=== PATIENT | female | born 2000 | race Hispanic/Latino ===

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

== ENCOUNTER 2021-08-13 19:11 | Emergency (ER) | payer BC, OTHER ==
--- OUTSIDE RECORDS SUMMARY | 2021-08-13 19:20 | XMS REPORT | Continuity of Care Document ---
:2000 Author Organization [facility] t Address [address] [place] [address] Dr. Gonzalez. [address] [place] [address] Care Team Providers Name Role Phone PCP, DOES NOT HAVE A Primary Care Physician Unavailable Adrienne LEIVA Attending Clinician Unavailable Adrienne Wu Attending Clinician Silvano Tim DO Attending Clinician Nurse, Women's Health Attending Clinician Unavailable Lisseth FREEMAN L Attending Clinician Brii MONTANEZ Attending Clinician Unavailable 2, Lab Attending Clinician Unavailable Doctor Unassigned, Name Attending Clinician Unavailable Jet HOLDEN Attending Clinician Provider, Urgent Care Attending Clinician Unavailable Dewayne Wright PA-C Attending Clinician DEWAYNE WRIGHT Attending Clinician Unavailable Ming Agarwal Attending Clinician Care, 23 - Adult & Pedi Urgent Attending Clinician UnavailMing Pedersen Attending Clinician Unavailable Louis FREEMAN, Silas Attending Clinician Ousmane PRETTY Attending Clinician Payers Payer Name Policy Type Policy Number Effective Date Expiration Date [facility] [id number] 2020 00:00:00 Problems Condition Condition Condition Status Onset Resolution Last Treating Co mments Source Name Details Category Date Date Treatment Clinician Date Depression Depression Disease Active N PI:183 with with 12-26 [id number] anxiety anxiety 00:00: 00 GERD GERD Disease Active NPI:183 (gastroeso (gastroeso 4-14 13 96475 phageal phageal 00:00: reflux reflux 00 disease) disease) S/P S/P Disease Active NPI:183 cholecyste cholecyste 14 13 17823 ctomy ctomy 00:00: 00 Obesity Obesity Disease Active 2018-04 NPI:183 (BMI (BMI 2-17 [id number] 30-39.9) 30-39.9) 00:00: 00 Drug use Drug use Disease Active NPI:1 83 3- [id number] 00:00: 00 Risky Risky Disease Active NPI:183 sexual sexual 2-28 1270862 behavior behavior 00:00: 00 Autism Autism Disease Active NPI:183 spectrum spectrum 7-21 467203 1 00:00: 00 Attention Attention Disease Active NPI :183 deficit deficit 7- 1208193 hyperactiv hyperactiv 00:00: ity ity 00 disorder disorder (ADHD), (ADHD), 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 IBS IBS Disease Active NPI:183 (irritable (irritable 10-27 13 00057 bowel bowel 00:00: syndrome) syndrome) 00 Allergies, Adverse Reactions, Alerts Allergy Allergy Status Severity Reaction(s) Onset Inactive Treating Comm ents Source Name Type Date Date Clinician HYDROCOD DRUG Active Rash NPI:183 ONE INGREDI 16 [id number] 00:00: 00 Hydrocod Propensi Active Rash NPI:18 3 one ty to 12-23 9883205 adverse 00:00: reaction 00 s NO KNOWN Drug Active NPI:183 ALLERGIE Class [id number] S Social History Social Habit Start Date Stop Date Quantity Comments Source Exposure to Not sure NPI:[id number] 1 SARS-CoV-2 (event) History of Cigarette Smoker NPI:1831 [id number] tobacco use Alcohol intake 2021-06-07 2021-06-07 0 /d NPI:[id number] 00:00:00 00:00:00 Tobacco use and 2019-12-24 2019-12-24 Never used NPI:10134 01937 exposure 00:00:00 00:00:00 Sex Assigned At 2000 2000 NPI:09846 53628 00:00:00 00:00:00 Smoking Status Start Date Stop Date Source Former smoker 2019-12-24 00:00:00 2019-12-24 00:00:00 NPI:1831 [id number] Never smoker Medications Ordered Filled Start Stop Current Ordering Indication Dosage Frequency Signature Comments Components Source Medication Medication Date Date Medication? Clinician (SIG) Name Name azithromyci 2021- No 1000mg 1,000 mg, NPI:183 n 06-07 Oral, [id number] (ZITHROMAX) 18:30: 17:34 ONCE, 1 tablet 00 :00 dose, On 1,000 mg Sun06/07/21 at 1230, TORSTEN
Re ason for Anti-Infec tive: Empiric Therapy for Suspected Infection< br>Empiric Therapy Site: Pelvic
Duration of therapy: 72 hours cefTRIAXone 2021- No 500mg 500 mg, N PI:183 (ROCEPHIN) 06-07 Intramuscu 13 41673 injection 18:30: 17:35 lar, ONCE, 500 mg 00 :00 1 dose, On Sun06/07/21 at 1230, TORSTEN
Re ason for Anti-Infec tive: Empiric Therapy for Suspected Infection< br>Empiric Therapy Site: Pelvic
Duration of therapy: 72 hours doxycycline 2021-2021- Yes [id number] 100mg Take 1 NPI:183 hyclate 100 06-07 capsule by 1 [id number] mg capsule 00:00: 05:59 mouth 2 00 :00 (two) times daily for 7 days. azithromyci Yes [id number] 1000mg Take 2 NPI:183 n 500 mg 9-17 [place] [id number] 81 tablet 00:00: mouth 00 daily. azithromyci Yes [id number] 1000mg Take 2 NPI:183 n 500 mg 9-17 [place] 28093 81 tablet 00:00: mouth 00 daily. azithromyci 2020-0 Yes [id number] 1000mg Take 2 NPI:183 n 500 mg 9-17 [place] 67026 81 tablet 00:00: mouth 00 daily. azithromyci 2020-0 Yes [id number] 1000mg Take 2 NPI:183 n 500 mg 9-17 [place] 98060 81 tablet 00:00: mouth 00 daily. azithromyci 2020-0 Yes [id number] 1000mg Take 2 NPI:183 n 500 mg 9-17 tablets [place] [id number] 81 tablet 00:00: mouth 00 daily. azithromyci 2020-0 Yes [id number] 1000mg Take 2 NPI:183 n 500 mg 9-17 [place] [id number] 81 tablet 00:00: mouth 00 daily. azithromyci 2020-0 Yes [id number] 1000mg Take 2 NPI:183 n 500 mg 9-17 [place] [id number] 81 tablet 00:00: mouth 00 daily. azithromyci 2020-0 Yes [id number] 1000mg Take 2 NPI:183 n 500 mg 9-17 [place] 72572 81 tablet 00:00: mouth 00 daily. mirtazapine 2020-0 Yes 30mg Take 30 mg NPI:183 30 mg 9-16 by mouth [id number] tablet 18:39: at 18 bedtime. propranoloL 2020-0 Yes 20mg Take 20 mg NPI:183 20 mg 9-16 by mouth 2 [id number] tablet 18:39: (two) 18 times daily. FLUoxetine 2020-0 Yes 20mg Take 20 mg N PI:183 (PROZAC) 20 9-16 by mouth 1318 781 mg capsule 18:39: daily. 18 mirtazapine 2020-0 Yes 30mg Take 30 mg NPI:183 30 mg 9-16 by mouth [id number] tablet 18:39: at 18 bedtime. propranoloL 2020-0 Yes 20mg Take 20 mg NPI:183 20 mg 9-16 by mouth 2 [id number] tablet 18:39: (two) 18 times daily. FLUoxetine 2020-0 Yes 20mg Take 20 mg N PI:183 (PROZAC) 20 9-16 by mouth 1318 781 mg capsule 18:39: daily. 18 mirtazapine 2020-0 Yes 30mg Take 30 mg NPI:183 30 mg 9-16 by mouth [id number] tablet 18:39: at 18 bedtime. propranoloL 2020-0 Yes 20mg Take 20 mg NPI:183 20 mg 9-16 by mouth 2 [id number] tablet 18:39: (two) 18 times daily. FLUoxetine 2020-0 Yes 20mg Take 20 mg N PI:183 (PROZAC) 20 9-16 by mouth 1318 781 mg capsule 18:39: daily. 18 mirtazapine 2020-0 Yes 30mg Take 30 mg NPI:183 30 mg 9-16 by mouth [id number] tablet 18:39: at 18 bedtime. propranoloL 2020-0 Yes 20mg Take 20 mg NPI:183 20 mg 9-16 by mouth 2 [id number] tablet 18:39: (two) 18 times daily. FLUoxetine 2020-0 Yes 20mg Take 20 mg N PI:183 (PROZAC) 20 9-16 by mouth 1318 781 mg capsule 18:39: daily. 18 mirtazapine 2020-0 Yes 30mg Take 30 mg NPI:183 30 mg 9-16 by mouth [id number] tablet 18:39: at 18 bedtime. propranoloL 2020-0 Yes 20mg Take 20 mg NPI:183 20 mg 9-16 by mouth 2 [id number] tablet 18:39: (two) 18 times daily. FLUoxetine 2020-0 Yes 20mg Take 20 mg N PI:183 (PROZAC) 20 9-16 by mouth 1318 781 mg capsule 18:39: daily. 18 mirtazapine 2020-0 Yes 30mg Take 30 mg NPI:183 30 mg 9-16 by mouth [id number] tablet 18:39: at 18 bedtime. propranoloL 2020-0 Yes 20mg Take 20 mg NPI:183 20 mg 9-16 by mouth 2 [id number] tablet 18:39: (two) 18 times daily. FLUoxetine 2020-0 Yes 20mg Take 20 mg N PI:183 (PROZAC) 20 9-16 by mouth 1318 781 mg capsule 18:39: daily. 18 mirtazapine 2020-0 Yes 30mg Take 30 mg NPI:183 30 mg 9-16 by mouth [id number] tablet 18:39: at 18 bedtime. propranoloL 2020-0 Yes 20mg Take 20 mg NPI:183 20 mg 9-16 by mouth 2 [id number] tablet 18:39: (two) 18 times daily. FLUoxetine 2020-0 Yes 20mg Take 20 mg N PI:183 (PROZAC) 20 9-16 by mouth 1318 781 mg capsule 18:39: daily. 18 mirtazapine 2020-0 Yes 30mg Take 30 mg NPI:183 30 mg 9-16 by mouth [id number] tablet 18:39: at 18 bedtime. propranoloL 2020-0 Yes 20mg Take 20 mg NPI:183 20 mg 9-16 by mouth 2 [id number] tablet 18:39: (two) 18 times daily. FLUoxetine 2020-0 Yes 20mg Take 20 mg N PI:183 (PROZAC) 20 9-16 by mouth 1318 781 mg capsule 18:39: daily. 18 mirtazapine 2020-0 Yes 30mg Take 30 mg NPI:183 30 mg 9-16 by mouth [id number] tablet 18:39: at 18 bedtime. propranoloL 2020-0 Yes 20mg Take 20 mg NPI:183 20 mg 9-16 by mouth 2 [id number] tablet 18:39: (two) 18 times daily. FLUoxetine 2020-0 Yes 20mg Take 20 mg N PI:183 (PROZAC) 20 9-16 by mouth 1318 781 mg capsule 18:39: daily. 18 mirtazapine 2020-0 Yes 30mg Take 30 mg NPI:183 30 mg 9-16 by mouth [id number] tablet 18:39: at 18 bedtime. propranoloL 2020-0 Yes 20mg Take 20 mg NPI:183 20 mg 9-16 by mouth 2 [id number] tablet 18:39: (two) 18 times daily. FLUoxetine 2020-0 Yes 20mg Take 20 mg N PI:183 (PROZAC) 20 9-16 by mouth 1318 781 mg capsule 18:39: daily. 18 mirtazapine 2020-0 Yes 30mg Take 30 mg NPI:183 30 mg 9-16 by mouth [id number] tablet 18:39: at 18 bedtime. propranoloL 2020-0 Yes 20mg Take 20 mg NPI:183 20 mg 9-16 by mouth 2 [id number] tablet 18:39: (two) 18 times daily. FLUoxetine 2020-0 Yes 20mg Take 20 mg N PI:183 (PROZAC) 20 9-16 by mouth 1318 781 mg capsule 18:39: daily. 18 busPIRone 2020-0 Yes 30mg Take 30 mg AP PROCESSOR I:183 30 mg 9-16 by mouth 2 [id number] tablet 18:39: (two) 17 times daily. busPIRone 2020-0 Yes 30mg Take 30 mg AP PROCESSOR I:183 30 mg 9-16 by mouth 2 [id number] tablet 18:39: (two) 17 times daily. busPIRone 2020-0 Yes 30mg Take 30 mg AP PROCESSOR I:183 30 mg 9-16 by mouth 2 [id number] tablet 18:39: (two) 17 times daily. busPIRone 2020-0 Yes 30mg Take 30 mg AP PROCESSOR I:183 30 mg 9-16 by mouth 2 [id number] tablet 18:39: (two) 17 times daily. busPIRone 2020-0 Yes 30mg Take 30 mg AP PROCESSOR I:183 30 mg 9-16 by mouth 2 [id number] tablet 18:39: (two) 17 times daily. busPIRone 2020-0 Yes 30mg Take 30 mg AP PROCESSOR I:183 30 mg 9-16 by mouth 2 [id number] tablet 18:39: (two) 17 times daily. busPIRone 2020-0 Yes 30mg Take 30 mg AP PROCESSOR I:183 30 mg 9-16 by mouth 2 [id number] tablet 18:39: (two) 17 times daily. busPIRone 2020-0 Yes 30mg Take 30 mg AP PROCESSOR I:183 30 mg 9-16 by mouth 2 [id number] tablet 18:39: (two) 17 times daily. busPIRone 2020-0 Yes 30mg Take 30 mg AP PROCESSOR I:183 30 mg 9-16 by mouth 2 [id number] tablet 18:39: (two) 17 times daily. busPIRone 2020-0 Yes 30mg Take 30 mg AP PROCESSOR I:183 30 mg 9-16 by mouth 2 [id number] tablet 18:39: (two) 17 times daily. busPIRone 2020-0 Yes 30mg Take 30 mg AP PROCESSOR I:183 30 mg 9-16 by mouth 2 [id number] tablet 18:39: (two) 17 times daily. mirtazapine 2020-0 Yes 30mg Take 30 mg NPI:183 30 mg 9-16 by mouth [id number] tablet 13:39: at 18 bedtime. propranoloL 2020-0 Yes 20mg Take 20 mg NPI:183 20 mg 9-16 by mouth 2 [id number] tablet 13:39: (two) 18 times daily. FLUoxetine 2020-0 Yes 20mg Take 20 mg N PI:183 (PROZAC) 20 9-16 by mouth 1318 781 mg capsule 13:39: daily. 18 busPIRone 2020-0 Yes 30mg Take 30 mg AP PROCESSOR I:183 30 mg 9-16 by mouth 2 [id number] tablet 13:39: (two) 17 times daily. metroNIDAZO 2020-0 2020- No [id number] 500mg Take 1 NPI:183 LE 500 mg 08-04 05-06 tablet by 1318 781 tablet 00:00: 04:59 mouth 2 00 :00 (two) times daily for 7 days. cefTRIAXone 2020-0 2020- No [id number] 1000mg NPI:183 (ROCEPHIN) 07-21 [id number] injection 19:45: 18:54 1,000 mg 00 :00 lidocaine 2019-0 2020- No [id number] 2.1mL AP PROCESSOR I:183 1% (PF) 07-21 [id number] (XYLOCAINE) 19:45: 18:54 injection 00 :00 2.1 mL lidocaine 2019-2019- No [id number] 2.1mL 2.1 mL, NPI:183 1% (PF) 07-21 Intramuscu [id number] 81 (XYLOCAINE) 19:45: 18:54 lar, ONCE, injection 00 :00 1 dose, 2.1 mL 07/22/19 at 1445, Routine cefTRIAXone 2019-2019- No [id number] 1000mg 1,000 mg, NPI:183 (ROCEPHIN) 07-21 Intramuscu 13 [id number] injection 19:45: 18:54 lar, ONCE, 1,000 mg 00 :00 1 dose, 07/22/19 at 1445, TORSTEN
Re ason for Anti-Infec tive: Empiric Therapy for Suspected Infection< br>Empiric Therapy Site: Urine
D uration of therapy: 72 hours dextroamphe 2019-0 2020- No Take by N PI:183 tamine/amph 07-21 mouth. [id number] 81 etamine 18:00: 00:00 (ADDERALL 30 :00 ORAL) dextroamphe 2019-0 2020- No Take by N PI:183 tamine/amph 07-21 mouth. [id number] 81 etamine 13:00: 00:00 (ADDERALL 30 :00 ORAL) ciprofloxac 2020-0 2020- No [id number] 500mg Take 1 NPI:183 in HCl -07-29 tablet by [id number] (CIPRO) 500 00:00: 04:59 mouth mg tablet 00 :00 every 12 (twelve) hours for 7 days. dextroamphe 2020-0 Yes TAKE 1 NPI: 183 tamine-amph 2-26 TABLET BY 131 [id number] etamine 10 00:00: ORAL ROUTE mg tablet 00 2 TIMES EVERY DAY BEFORE BREAKFAST NEEDED FOR ADHD dextroamphe 2020-0 Yes TAKE 1 NPI: 183 tamine-amph 2-26 TABLET BY 131 8781 etamine 10 00:00: ORAL ROUTE mg tablet 00 2 TIMES EVERY DAY BEFORE BREAKFAST NEEDED FOR ADHD dextroamphe 2020-0 Yes TAKE 1 NPI: 183 tamine-amph 2-26 TABLET BY 131 8781 etamine 10 00:00: ORAL ROUTE mg tablet 00 2 TIMES EVERY DAY BEFORE BREAKFAST NEEDED FOR ADHD dextroamphe 2020-0 Yes TAKE 1 NPI: 183 tamine-amph 2-26 TABLET BY 131 8781 etamine 10 00:00: ORAL ROUTE mg tablet 00 2 TIMES EVERY DAY BEFORE BREAKFAST NEEDED FOR ADHD dextroamphe 2020-0 Yes TAKE 1 NPI: 183 tamine-amph 2-26 TABLET BY 131 8781 etamine 10 00:00: ORAL ROUTE mg tablet 00 2 TIMES EVERY DAY BEFORE BREAKFAST NEEDED FOR ADHD dextroamphe 2020-0 Yes TAKE 1 NPI: 183 tamine-amph 2-26 TABLET BY 131 8781 etamine 10 00:00: ORAL ROUTE mg tablet 00 2 TIMES EVERY DAY BEFORE BREAKFAST NEEDED FOR ADHD dextroamphe 2020-0 Yes TAKE 1 NPI: 183 tamine-amph 2-26 TABLET BY 131 8781 etamine 10 00:00: ORAL ROUTE mg tablet 00 2 TIMES EVERY DAY BEFORE BREAKFAST NEEDED FOR ADHD dextroamphe 2020-0 Yes TAKE 1 NPI: 183 tamine-amph 2-26 TABLET BY 131 8781 etamine 10 00:00: ORAL ROUTE mg tablet 00 2 TIMES EVERY DAY BEFORE BREAKFAST NEEDED FOR ADHD dextroamphe 2020-0 Yes TAKE 1 NPI: 183 tamine-amph 2-26 TABLET BY 131 8781 etamine 10 00:00: ORAL ROUTE mg tablet 00 2 TIMES EVERY DAY BEFORE BREAKFAST NEEDED FOR ADHD dextroamphe 2020-0 Yes TAKE 1 NPI: 183 tamine-amph 2-26 TABLET BY 131 8781 etamine 10 00:00: ORAL ROUTE mg tablet 00 2 TIMES EVERY DAY BEFORE BREAKFAST NEEDED FOR ADHD dextroamphe 2020-0 Yes TAKE 1 NPI: 183 tamine-amph 2-26 TABLET BY 131 8781 etamine 10 00:00: ORAL ROUTE mg tablet 00 2 TIMES EVERY DAY BEFORE BREAKFAST NEEDED FOR ADHD dextroamphe 2020-0 Yes TAKE 1 NPI: 183 tamine-amph 2-26 TABLET BY 131 8781 etamine 10 00:00: ORAL ROUTE mg tablet 00 2 TIMES EVERY DAY BEFORE BREAKFAST NEEDED FOR ADHD dextroamphe 2020-0 Yes TAKE 1 NPI: 183 tamine-amph 2-26 TABLET BY 131 8781 etamine 10 00:00: ORAL ROUTE mg tablet 00 2 TIMES EVERY DAY BEFORE BREAKFAST NEEDED FOR ADHD dextroamphe 2020-0 Yes TAKE 1 NPI: 183 tamine-amph 2-26 TABLET BY 131 8781 etamine 10 00:00: ORAL ROUTE mg tablet 00 2 TIMES EVERY DAY BEFORE BREAKFAST NEEDED FOR ADHD dextroamphe 2020-0 Yes TAKE 1 NPI: 183 tamine-amph 2-26 TABLET BY 131 8781 etamine 10 00:00: ORAL ROUTE mg tablet 00 2 TIMES EVERY DAY BEFORE BREAKFAST NEEDED FOR ADHD dextroamphe 2020-0 Yes TAKE 1 NPI: 183 tamine-amph 2-26 TABLET BY 131 8781 etamine 10 00:00: ORAL ROUTE mg tablet 00 2 TIMES EVERY DAY BEFORE BREAKFAST NEEDED FOR ADHD propranolol 2020-0 Yes TAKE 1 NPI: 183 10 mg 2-12 TABLET BY [id number] tablet 00:00: MOUTH 00 TWICE A DAY NEEDED FOR ANXIETY propranolol 2020-0 Yes TAKE 1 NPI: 183 10 mg 2-12 TABLET BY [id number] tablet 00:00: MOUTH 00 TWICE A DAY NEEDED FOR ANXIETY propranolol 2020-0 Yes TAKE 1 NPI: 183 10 mg 2-12 TABLET BY [id number] tablet 00:00: MOUTH 00 TWICE A DAY NEEDED FOR ANXIETY propranolol 2020-0 Yes TAKE 1 NPI: 183 10 mg 2-12 TABLET BY [id number] tablet 00:00: MOUTH 00 TWICE A DAY NEEDED FOR ANXIETY propranolol 2020-0 2020- No TAKE 1 NPI :183 10 mg 2-12 -16 TABLET BY [id number] tablet 00:00: 00:00 MOUTH 00 :00 TWICE A DAY NEEDED FOR ANXIETY propranolol 2019- No TAKE 1 NPI :183 10 mg 2-12 -16 TABLET BY [id number] tablet 00:00: 00:00 MOUTH 00 :00 TWICE A DAY NEEDED FOR ANXIETY metroNIDAZO 2018-04 Yes [id number] 500mg Take 1 NPI:183 LE 500 mg 2-18 [place] [id number] 81 tablet 00:00: mouth 00 every 12 (twelve) hours. metroNIDAZO 2018-04 Yes [id number] 500mg Take 1 NPI:183 LE 500 mg 2-18 [place] [id number] 81 tablet 00:00: mouth 00 every 12 (twelve) hours. metroNIDAZO 2018-04 Yes [id number] 500mg Take 1 NPI:183 LE 500 mg 2-18 [place] [id number] 81 tablet 00:00: mouth 00 every 12 (twelve) hours. metroNIDAZO 2018-04 Yes [id number] 500mg Take 1 NPI:183 LE 500 mg 2-18 [place] [id number] 81 tablet 00:00: mouth 00 every 12 (twelve) hours. metroNIDAZO 2018-04 Yes [id number] 500mg Take 1 NPI:183 LE 500 mg 2-18 [place] 11130 81 tablet 00:00: mouth 00 every 12 (twelve) hours. metroNIDAZO 2018-04 Yes [id number] 500mg Take 1 NPI:183 LE 500 mg 2-18 [place] [id number] 81 tablet 00:00: mouth 00 every 12 (twelve) hours. metroNIDAZO 2018-04 2020- No [id number] 500mg Take 1 NPI:183 LE 500 mg 2-18 04-14 tablet by 1318 781 tablet 00:00: 00:00 mouth 00 :00 every 12 (twelve) hours. metroNIDAZO 2018-04 2020- No [id number] 500mg Take 1 NPI:183 LE 500 mg 2-18 04-14 tablet by 1318 781 tablet 00:00: 00:00 mouth 00 :00 every 12 (twelve) hours. dextroamphe 2018-04 Yes Take by AP PROCESSOR I:183 tamine/amph 1-14 mouth. [id number] 1 etamine 20:38: (ADDERALL 15 ORAL) dextroamphe 2018-04 Yes Take by AP PROCESSOR I:183 tamine/amph 1-14 mouth. [id number] 1 etamine 20:38: (ADDERALL 15 ORAL) dextroamphe 2018-04 Yes Take by AP PROCESSOR I:183 tamine/amph 1-14 mouth. [id number] 1 etamine 20:38: (ADDERALL 15 ORAL) dextroamphe 2018-04 Yes Take by AP PROCESSOR I:183 tamine/amph 1-14 mouth. [id number] 1 etamine 20:38: (ADDERALL 15 ORAL) dextroamphe 2018-04 Yes Take by AP PROCESSOR I:183 tamine/amph 1-14 mouth. [id number] 1 etamine 20:38: (ADDERALL 15 ORAL) dextroamphe 2018-04 Yes Take by AP PROCESSOR I:183 tamine/amph 1-14 mouth. [id number] 1 etamine 20:38: (ADDERALL 15 ORAL) metroNIDAZO Yes [id number] 500mg Take 1 NPI:183 LE 500 mg 8-30 [place] 63839 81 tablet 00:00: mouth 00 every 12 (twelve) hours. metroNIDAZO Yes [id number] 500mg Take 1 NPI:183 LE 500 mg 8-30 [place] [id number] 81 tablet 00:00: mouth 00 every 12 (twelve) hours. metroNIDAZO Yes [id number] 500mg Take 1 NPI:183 LE 500 mg 8-30 [place] 61652 81 tablet 00:00: mouth 00 every 12 (twelve) hours. metroNIDAZO Yes [id number] 500mg Take 1 NPI:183 LE 500 mg 8-30 [place] [id number] 81 tablet 00:00: mouth 00 every 12 (twelve) hours. metroNIDAZO Yes [id number] 500mg Take 1 NPI:183 LE 500 mg 8-30 [place] 82343 81 tablet 00:00: mouth 00 every 12 (twelve) hours. metroNIDAZO Yes [id number] 500mg Take 1 NPI:183 LE 500 mg 8-30 [place] 22091 81 tablet 00:00: mouth 00 every 12 (twelve) hours. metroNIDAZO Yes [id number] 500mg Take 1 NPI:183 LE 500 mg 8-30 [place] [id number] 81 tablet 00:00: mouth 00 every 12 (twelve) hours. metroNIDAZO 2019-0 2020- No [id number] 500mg Take 1 NPI:183 LE 500 mg 8-30 04-14 tablet by 1318 781 tablet 00:00: 00:00 mouth 00 :00 every 12 (twelve) hours. metroNIDAZO 2019-0 2020- No [id number] 500mg Take 1 NPI:183 LE 500 mg 8-30 04-14 tablet by 1318 781 tablet 00:00: 00:00 mouth 00 :00 every 12 (twelve) hours. dextroamphe 2019-0 Yes Take by AP PROCESSOR I:183 tamine/amph 8-29 mouth. [id number] 1 etamine 14:43: (ADDERALL 19 ORAL) dextroamphe 2019-0 Yes Take by AP PROCESSOR I:183 tamine/amph 8-29 mouth. [id number] 1 etamine 14:43: (ADDERALL 19 ORAL) dextroamphe 2019-0 Yes Take by AP PROCESSOR I:183 tamine/amph 8-29 mouth. [id number] 1 etamine 14:43: (ADDERALL 19 ORAL) dextroamphe 2019-0 Yes Take by AP PROCESSOR I:183 tamine/amph 8-29 mouth. [id number] 1 etamine 14:43: (ADDERALL 19 ORAL) mirtazapine 2019-0 Yes TAKE 1 NPI: 183 15 mg 6-06 TABLET BY [id number] tablet 00:00: ORAL ROUTE 00 EVERY DAY BEFORE BEDTIME mirtazapine 2019-0 Yes TAKE 1 NPI: 183 15 mg 6-06 TABLET BY [id number] tablet 00:00: ORAL ROUTE 00 EVERY DAY BEFORE BEDTIME mirtazapine 2019-0 Yes TAKE 1 NPI: 183 15 mg 6-06 TABLET BY [id number] tablet 00:00: ORAL ROUTE 00 EVERY DAY BEFORE BEDTIME mirtazapine 2019-0 Yes TAKE 1 NPI: 183 15 mg 6-06 TABLET BY [id number] tablet 00:00: ORAL ROUTE 00 EVERY DAY BEFORE BEDTIME mirtazapine 2019-0 Yes TAKE 1 NPI: 183 15 mg 6-06 TABLET BY [id number] tablet 00:00: ORAL ROUTE 00 EVERY DAY BEFORE BEDTIME mirtazapine 2019-0 Yes TAKE 1 NPI: 183 15 mg 6-06 TABLET BY [id number] tablet 00:00: ORAL ROUTE 00 EVERY DAY BEFORE BEDTIME mirtazapine 2019-0 Yes TAKE 1 NPI: 183 15 mg 6-06 TABLET BY [id number] tablet 00:00: ORAL ROUTE 00 EVERY DAY BEFORE BEDTIME mirtazapine 2019-0 Yes TAKE 1 NPI: 183 15 mg 6-06 TABLET BY [id number] tablet 00:00: ORAL ROUTE 00 EVERY DAY BEFORE BEDTIME mirtazapine 2019-0 Yes TAKE 1 NPI: 183 15 mg 6-06 TABLET BY [id number] tablet 00:00: ORAL ROUTE 00 EVERY DAY BEFORE BEDTIME mirtazapine 2019-0 Yes TAKE 1 NPI: 183 15 mg 6-06 TABLET BY [id number] tablet 00:00: ORAL ROUTE 00 EVERY DAY BEFORE BEDTIME mirtazapine 2019-0 Yes TAKE 1 NPI: 183 15 mg 6-06 TABLET BY [id number] tablet 00:00: ORAL ROUTE 00 EVERY DAY BEFORE BEDTIME mirtazapine 2019-0 Yes TAKE 1 NPI: 183 15 mg 6-06 TABLET BY [id number] tablet 00:00: ORAL ROUTE 00 EVERY DAY BEFORE BEDTIME mirtazapine 2019-0 Yes TAKE 1 NPI: 183 15 mg 6-06 TABLET BY [id number] tablet 00:00: ORAL ROUTE 00 EVERY DAY BEFORE BEDTIME mirtazapine 2019-0 Yes TAKE 1 NPI: 183 15 mg 6-06 TABLET BY [id number] tablet 00:00: ORAL ROUTE 00 EVERY DAY BEFORE BEDTIME mirtazapine 2019-0 2020- No TAKE 1 NPI :183 15 mg 6-06 09-16 TABLET BY [id number] tablet 00:00: 00:00 ORAL ROUTE 00 :00 EVERY DAY BEFORE BEDTIME mirtazapine 2019-0 2020- No TAKE 1 NPI :183 15 mg 6-06 09-16 TABLET BY [id number] tablet 00:00: 00:00 ORAL ROUTE 00 :00 EVERY DAY BEFORE BEDTIME mirtazapine 2019-0 2020- No TAKE 1 NPI :183 15 mg 6-06 09-16 TABLET BY [id number] tablet 00:00: 00:00 ORAL ROUTE 00 :00 EVERY DAY BEFORE BEDTIME dextroamphe 2019-0 Yes Take by AP PROCESSOR I:183 tamine/amph 2-21 mouth. [id number] 1 etamine 21:11: (ADDERALL 09 ORAL) Nitrofurant 2019-0 Yes TAKE ONE AP PROCESSOR I:183 oin&Nit. 2-18 [place] [id number] Macrocryst 00:00: MOUTH 100 mg 00 EVERY 12 capsule HOURS FOR 7 DAYS Nitrofurant 2019-0 Yes TAKE ONE AP PROCESSOR I:183 oin&Nit. 2-18 [place] [id number] 81 Macrocryst 00:00: MOUTH 100 mg 00 EVERY 12 capsule HOURS FOR 7 DAYS Nitrofurant 2019-0 Yes TAKE ONE AP PROCESSOR I:183 oin&Nit. 2-18 [place] [id number] Macrocryst 00:00: MOUTH 100 mg 00 EVERY 12 capsule HOURS FOR 7 DAYS Nitrofurant 2019-0 Yes TAKE ONE AP PROCESSOR I:183 oin&Nit. 2-18 [place] [id number] 81 Macrocryst 00:00: MOUTH 100 mg 00 EVERY 12 capsule HOURS FOR 7 DAYS Nitrofurant 2019-0 Yes TAKE ONE AP PROCESSOR I:183 oin&Nit. 2-18 [place] [id number] 81 Macrocryst 00:00: MOUTH 100 mg 00 EVERY 12 capsule HOURS FOR 7 DAYS Nitrofurant 2019-0 Yes TAKE ONE AP PROCESSOR I:183 oin&Nit. 2-18 [place] [id number] Macrocryst 00:00: MOUTH 100 mg 00 EVERY 12 capsule HOURS FOR 7 DAYS Nitrofurant 2019-0 Yes TAKE ONE AP PROCESSOR I:183 oin&Nit. 2-18 [place] [id number] Macrocryst 00:00: MOUTH 100 mg 00 EVERY 12 capsule HOURS FOR 7 DAYS Nitrofurant 2019-0 Yes TAKE ONE AP PROCESSOR I:183 oin&Nit. 2-[place] [id number] 81 Macrocryst 00:00: MOUTH 100 mg 00 EVERY 12 capsule HOURS FOR 7 DAYS Nitrofurant 2019-0 Yes TAKE ONE AP PROCESSOR I:183 oin&Nit. 2-18 [place] [id number] Macrocryst 00:00: MOUTH 100 mg 00 EVERY 12 capsule HOURS FOR 7 DAYS Nitrofurant 2019-0 Yes TAKE ONE AP PROCESSOR I:183 oin&Nit. 2-[place] [id number] Macrocryst 00:00: MOUTH 100 mg 00 EVERY 12 capsule HOURS FOR 7 DAYS Nitrofurant 2019-0 Yes TAKE ONE AP PROCESSOR I:183 oin&Nit. 2-18 [place] [id number] Macrocryst 00:00: MOUTH 100 mg 00 EVERY 12 capsule HOURS FOR 7 DAYS Nitrofurant 2019-0 2020- No TAKE ONE N PI:183 oin&Nit. 2-18 04-14 CAPSULE BY [id number] Macrocryst 00:00: 00:00 MOUTH 100 mg 00 :00 EVERY 12 capsule HOURS FOR 7 DAYS Nitrofurant 2018-0 2020- No TAKE ONE N PI:183 oin&Nit. 2-18 14 CAPSULE BY [id number] Macrocryst 00:00: 00:00 MOUTH 100 mg 00 :00 EVERY 12 capsule HOURS FOR 7 DAYS busPIRone 5 2017-0 Yes NPI:18 3 mg tablet 5-21 [id number] 00:00: 00 busPIRone 5 2017-0 Yes NPI:18 3 mg tablet 5-21 [id number] 00:00: 00 busPIRone 5 2017-0 Yes NPI:18 3 mg tablet 5-21 [id number] 00:00: 00 busPIRone 5 2017-0 Yes NPI:18 3 mg tablet 5-21 [id number] 00:00: 00 busPIRone 5 2017-0 Yes NPI:18 3 mg tablet 5- [id number] 00:00: 00 busPIRone 5 2017-0 Yes NPI:18 3 mg tablet 5-21 [id number] 00:00: 00 busPIRone 5 2017-0 Yes NPI:18 3 mg tablet 5-21 [id number] 00:00: 00 busPIRone 5 2017-0 Yes NPI:18 3 mg tablet 5-21 [id number] 00:00: 00 busPIRone 5 2017-0 Yes NPI:18 3 mg tablet 5- [id number] 00:00: 00 busPIRone 5 2017-0 Yes NPI:18 3 mg tablet 5- [id number] 00:00: 00 busPIRone 5 2017-0 Yes NPI:18 3 mg tablet 5- [id number] 00:00: 00 busPIRone 5 2017-0 Yes NPI:18 3 mg tablet 5-21 [id number] 00:00: 00 busPIRone 5 2017-0 Yes NPI:18 3 mg tablet - [id number] 00:00: 00 busPIRone 5 2017-0 Yes NPI:18 3 mg tablet - [id number] 00:00: 00 busPIRone 5 2017-0 Yes NPI:18 3 mg tablet 5- [id number] 00:00: 00 busPIRone 5 2017-0 2020- No NPI:1 83 mg tablet 12-23 [id number] 00:00: 00:00 00 :00 busPIRone 5 2017-0 2020- No NPI:1 83 mg tablet 08-27 [id number] 00:00: 00:00 00 :00 busPIRone 5 2017-0 2020- No NPI:1 83 mg tablet 08-27 [id number] 00:00: 00:00 00 :00 SERTraline 2016-0 Yes NPI:183 100 mg 2-01 [id number] tablet 00:00: 00 SERTraline 2015-0 Yes NPI:183 100 mg 2-01 [id number] tablet 00:00: 00 SERTraline 2015-0 Yes NPI:183 100 mg 2-01 [id number] tablet 00:00: 00 SERTraline 2016-0 Yes NPI:183 100 mg 2-01 [id number] tablet 00:00: 00 SERTraline 2016-0 Yes NPI:183 100 mg 2-01 [id number] tablet 00:00: 00 SERTraline 2015-0 Yes NPI:183 100 mg 2-01 [id number] tablet 00:00: 00 SERTraline 2015-0 Yes NPI:183 100 mg 2-01 [id number] tablet 00:00: 00 SERTraline 2015-0 Yes NPI:183 100 mg 2-01 [id number] tablet 00:00: 00 SERTraline 2016-0 Yes NPI:183 100 mg 2-01 [id number] tablet 00:00: 00 SERTraline 2016-0 Yes NPI:183 100 mg 2-01 [id number] tablet 00:00: 00 SERTraline 2015-0 Yes NPI:183 100 mg 2-01 [id number] tablet 00:00: 00 SERTraline 2015-0 Yes NPI:183 100 mg 2-01 [id number] tablet 00:00: 00 SERTraline 2016-0 Yes NPI:183 100 mg 2-01 [id number] tablet 00:00: 00 SERTraline 2016-0 Yes NPI:183 100 mg 2-01 [id number] tablet 00:00: 00 SERTraline 2016-0 Yes NPI:183 100 mg 2-01 [id number] tablet 00:00: 00 SERTraline 2015-0 Yes NPI:183 100 mg 2-01 [id number] tablet 00:00: 00 SERTraline 2014-0 Yes 150mg 150 mg. NPI :183 (ZOLOFT) 50 8-10 [id number] mg tablet 00:00: 00 SERTraline 2015-0 Yes 150mg 150 mg. NPI :183 (ZOLOFT) 50 8-10 [id number] mg tablet 00:00: 00 SERTraline 2015-0 Yes 150mg 150 mg. NPI :183 (ZOLOFT) 50 8-10 [id number] mg tablet 00:00: 00 SERTraline 2015-0 Yes 150mg 150 mg. NPI :183 (ZOLOFT) 50 8-10 [id number] mg tablet 00:00: 00 SERTraline 2015-0 Yes 150mg 150 mg. NPI :183 (ZOLOFT) 50 8-10 [id number] mg tablet 00:00: 00 SERTraline 2015-0 Yes 150mg 150 mg. NPI :183 (ZOLOFT) 50 8-10 [id number] mg tablet 00:00: 00 SERTraline 2015-0 Yes 150mg 150 mg. NPI :183 (ZOLOFT) 50 8-10 [id number] mg tablet 00:00: 00 SERTraline 2015-0 Yes 150mg 150 mg. NPI :183 (ZOLOFT) 50 8-10 [id number] mg tablet 00:00: 00 SERTraline 2015-0 Yes 150mg 150 mg. NPI :183 (ZOLOFT) 50 8-10 [id number] mg tablet 00:00: 00 SERTraline 2015-0 Yes 150mg 150 mg. NPI :183 (ZOLOFT) 50 8-10 [id number] mg tablet 00:00: 00 SERTraline 2015-0 Yes 150mg 150 mg. NPI :183 (ZOLOFT) 50 8-10 [id number] mg tablet 00:00: 00 SERTraline 2015-0 2020- No 150mg 150 mg. 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 AP PROCESSOR I:183 (ZOLOFT) 50 8-10 04-14 [id number] mg tablet 00:00: 00:00 00 :00 omeprazole 2015-0 Yes NPI:183 (PRILOSEC) 7-16 [id number] 20 mg 00:00: capsule 00 omeprazole 2015-0 Yes 2 (two) NPI: 183 (PRILOSEC) 7-16 times [id number] 20 mg 00:00: daily. capsule 00 omeprazole 2015-0 Yes 2 (two) NPI: 183 (PRILOSEC) 7-16 times [id number] 20 mg 00:00: daily. capsule 00 omeprazole 2015-0 Yes NPI:183 (PRILOSEC) 7-16 [id number] 20 mg 00:00: capsule 00 omeprazole 2015-0 Yes 2 (two) NPI: 183 (PRILOSEC) 7-16 times [id number] 20 mg 00:00: daily. capsule 00 omeprazole 2015-0 Yes 2 (two) NPI: 183 (PRILOSEC) 7-16 times [id number] 20 mg 00:00: daily. capsule 00 omeprazole 2015-0 Yes 2 (two) NPI: 183 (PRILOSEC) 7-16 times [id number] 20 mg 00:00: daily. capsule 00 omeprazole 2015-0 Yes NPI:183 (PRILOSEC) 7-16 [id number] 20 mg 00:00: capsule 00 omeprazole 2015-0 Yes NPI:183 (PRILOSEC) 7-16 [id number] 20 mg 00:00: capsule 00 omeprazole 2014-0 Yes NPI:183 (PRILOSEC) 7-16 [id number] 20 mg 00:00: capsule 00 omeprazole 2015-0 Yes NPI:183 (PRILOSEC) 7-16 [id number] 20 mg 00:00: capsule 00 omeprazole 2015-0 Yes NPI:183 (PRILOSEC) 7-16 [id number] 20 mg 00:00: capsule 00 omeprazole 2015-0 Yes NPI:183 (PRILOSEC) 7-16 [id number] 20 mg 00:00: capsule 00 omeprazole 2015-0 Yes NPI:183 (PRILOSEC) 7-16 [id number] 20 mg 00:00: capsule 00 omeprazole 2015-0 Yes NPI:183 (PRILOSEC) 7-16 [id number] 20 mg 00:00: capsule 00 omeprazole 2015-0 Yes NPI:183 (PRILOSEC) 7-16 [id number] 20 mg 00:00: capsule 00 omeprazole 2015-0 Yes NPI:183 (PRILOSEC) 7-16 [id number] 20 mg 00:00: capsule 00 omeprazole 2015-0 Yes NPI:183 (PRILOSEC) 7-16 [id number] 20 mg 00:00: capsule 00 omeprazole 2015-0 Yes NPI:183 (PRILOSEC) 7-16 [id number] 20 mg 00:00: capsule 00 omeprazole 2015-0 Yes NPI:183 (PRILOSEC) 7-16 [id number] 20 mg 00:00: capsule 00 omeprazole 2015-0 Yes 2 (two) NPI: 183 (PRILOSEC) 7-16 times [id number] 20 mg 00:00: daily. capsule 00 omeprazole 2015-0 Yes 2 (two) NPI: 183 (PRILOSEC) 7-16 times [id number] 20 mg 00:00: daily. capsule 00 omeprazole 2015-0 Yes 2 (two) NPI: 183 (PRILOSEC) 7-16 times [id number] 20 mg 00:00: daily. capsule 00 omeprazole 2014-0 Yes 2 (two) NPI: 183 (PRILOSEC) 7-16 times [id number] 20 mg 00:00: daily. capsule 00 omeprazole 2014-0 Yes 2 (two) NPI: 183 (PRILOSEC) 7-16 times [id number] 20 mg 00:00: daily. capsule 00 omeprazole 2015-0 Yes 2 (two) NPI: 183 (PRILOSEC) 7-16 times [id number] 20 mg 00:00: daily. capsule 00 omeprazole 2015-0 Yes 2 (two) NPI: 183 (PRILOSEC) 7-16 times [id number] 20 mg 00:00: daily. capsule 00 omeprazole 2015-0 Yes 2 (two) NPI: 183 (PRILOSEC) 7-16 times [id number] 20 mg 00:00: daily. capsule 00 Immunizations Ordered Immunization Filled Immunization Date Status Commen ts Source Name Name Meningococcal 2018-04-08 Completed NPI:[id number] Polysaccharide (groups 00:00:00 1 A, C, Y and W-135) conjugate vaccine (MCV4P) Meningococcal 2018-04-08 Completed NPI:[id number] 78 Polysaccharide (groups 00:00:00 1 A, C, Y and W-135) conjugate vaccine (MCV4P) Meningococcal 2018-04-08 Completed NPI:[id number] 78 Polysaccharide (groups 00:00:00 1 A, C, Y and W-135) conjugate vaccine (MCV4P) Meningococcal 2018-04-08 Completed NPI:[id number] 78 Polysaccharide (groups 00:00:00 1 A, C, Y and W-135) conjugate vaccine (MCV4P) Meningococcal 2018-04-08 Completed NPI:[id number] 78 Polysaccharide (groups 00:00:00 1 A, C, Y and W-135) conjugate vaccine (MCV4P) Meningococcal 2018-04-08 Completed NPI:[id number] 78 Polysaccharide (groups 00:00:00 1 A, C, Y and W-135) conjugate vaccine (MCV4P) Meningococcal 2018-04-08 Completed NPI:[id number] 78 Polysaccharide (groups 00:00:00 1 A, C, Y and W-135) conjugate vaccine (MCV4P) Meningococcal 2018-04-08 Completed NPI:[id number] 78 Polysaccharide (groups 00:00:00 1 A, C, Y and W-135) conjugate vaccine (MCV4P) Meningococcal 2018-04-08 Completed NPI:[id number] 78 Polysaccharide (groups 00:00:00 1 A, C, Y and W-135) conjugate vaccine (MCV4P) Meningococcal 2018-04-08 Completed NPI:[id number] 78 Polysaccharide (groups 00:00:00 1 A, C, Y and W-135) conjugate vaccine (MCV4P) Meningococcal 2018-04-08 Completed NPI:[id number] 78 Polysaccharide (groups 00:00:00 1 A, C, Y and W-135) conjugate vaccine (MCV4P) Meningococcal 2018-04-08 Completed NPI:[id number] 78 Polysaccharide (groups 00:00:00 1 A, C, Y and W-135) conjugate vaccine (MCV4P) Meningococcal 2018-04-08 Completed NPI:[id number] 78 Polysaccharide (groups 00:00:00 1 A, C, Y and W-135) conjugate vaccine (MCV4P) Meningococcal 2018-04-08 Completed NPI:[id number] 78 Polysaccharide (groups 00:00:00 1 A, C, Y and W-135) conjugate vaccine (MCV4P) Meningococcal 2018-04-08 Completed NPI:[id number] 78 Polysaccharide (groups 00:00:00 1 A, C, Y and W-135) conjugate vaccine (MCV4P) Meningococcal 2018-04-08 Completed NPI:[id number] 78 Polysaccharide (groups 00:00:00 1 A, C, Y and W-135) conjugate vaccine (MCV4P) Meningococcal 2018-04-08 Completed NPI:[id number] 78 Polysaccharide (groups 00:00:00 1 A, C, Y and W-135) conjugate vaccine (MCV4P) Meningococcal 2018-04-08 Completed NPI:[id number] 78 Polysaccharide (groups 00:00:00 1 A, C, Y and W-135) conjugate vaccine (MCV4P) Meningococcal 2018-04-08 Completed NPI:[id number] 78 Polysaccharide (groups 00:00:00 1 A, C, Y and W-135) conjugate vaccine (MCV4P) Meningococcal 2018-04-08 Completed NPI:[id number] 78 Polysaccharide (groups 00:00:00 1 A, C, Y and W-135) conjugate vaccine (MCV4P) Meningococcal 2018-04-08 Completed NPI:[id number] 78 Polysaccharide (groups 00:00:00 1 A, C, Y and W-135) conjugate vaccine (MCV4P) Meningococcal 2018-04-08 Completed NPI:[id number] 78 Polysaccharide (groups 00:00:00 1 A, C, Y and W-135) conjugate vaccine (MCV4P) Meningococcal 2018-04-08 Completed NPI:[id number] 78 Polysaccharide (groups 00:00:00 1 A, C, Y and W-135) conjugate vaccine (MCV4P) Meningococcal 2018-04-08 Completed NPI:[id number] 78 Polysaccharide (groups 00:00:00 1 A, C, Y and W-135) conjugate vaccine (MCV4P) Meningococcal 2018-04-08 Completed NPI:[id number] 78 Polysaccharide (groups 00:00:00 1 A, C, Y and W-135) conjugate vaccine (MCV4P) Meningococcal 2018-04-08 Completed NPI:[id number] 78 Polysaccharide (groups 00:00:00 1 A, C, Y and W-135) conjugate vaccine (MCV4P) Meningococcal 2018-04-08 Completed NPI:[id number] 78 Polysaccharide (groups 00:00:00 1 A, C, Y and W-135) conjugate vaccine (MCV4P) Meningococcal 2018-04-08 Completed NPI:[id number] 78 Polysaccharide (groups 00:00:00 1 A, C, Y and W-135) conjugate vaccine (MCV4P) HPV9 2014-11-17 Completed NPI:[id number] 00:00:00 1 HPV9 2014-11-17 Completed NPI:[id number] 00:00:00 1 HPV9 2014-11-17 Completed NPI:[id number] 00:00:00 1 HPV9 2014-11-17 Completed NPI:[id number] 00:00:00 1 HPV9 2014-11-17 Completed NPI:[id number] 00:00:00 1 HPV9 2014-11-17 Completed NPI:[id number] 00:00:00 1 HPV9 2014-11-17 Completed NPI:[id number] 00:00:00 1 HPV9 2014-11-17 Completed NPI:[id number] 00:00:00 1 HPV9 2014-11-17 Completed NPI:[id number] 00:00:00 1 HPV9 2014-11-17 Completed NPI:[id number] 00:00:00 1 HPV9 2014-11-17 Completed NPI:[id number] 00:00:00 1 HPV9 2014-11-17 Completed NPI:[id number] 00:00:00 1 HPV9 2014-11-17 Completed NPI:[id number] 00:00:00 1 HPV9 2014-11-17 Completed NPI:[id number] 00:00:00 1 HPV9 2014-11-17 Completed NPI:[id number] 00:00:00 1 HPV9 2014-11-17 Completed NPI:[id number] 00:00:00 1 HPV9 2014-11-17 Completed NPI:[id number] 00:00:00 1 HPV9 2014-11-17 Completed NPI:[id number] 00:00:00 1 HPV9 2014-11-17 Completed NPI:[id number] 00:00:00 1 HPV9 2014-11-17 Completed NPI:[id number] 00:00:00 1 HPV9 2014-11-17 Completed NPI:[id number] 00:00:00 1 HPV9 2014-11-17 Completed NPI:[id number] 00:00:00 1 HPV9 2014-11-17 Completed NPI:[id number] 00:00:00 1 HPV9 2014-11-17 Completed NPI:[id number] 00:00:00 1 HPV9 2014-11-17 Completed NPI:[id number] 00:00:00 1 HPV9 2014-11-17 Completed NPI:[id number] 00:00:00 1 HPV9 2014-11-17 Completed NPI:[id number] 00:00:00 1 HPV9 2014-11-17 Completed NPI:[id number] 00:00:00 1 HPV 2013-02-18 Completed NPI:[id number] 00:00:00 1 HPV 2013-02-18 Completed NPI:[id number] 00:00:00 1 HPV 2013-02-18 Completed NPI:[id number] 00:00:00 1 HPV 2013-02-18 Completed NPI:[id number] 00:00:00 1 HPV 2013-02-18 Completed NPI:[id number] 00:00:00 1 HPV 2013-02-18 Completed NPI:[id number] 00:00:00 1 HPV 2013-02-18 Completed NPI:[id number] 00:00:00 1 HPV 2013-02-18 Completed NPI:[id number] 00:00:00 1 HPV 2013-02-18 Completed NPI:[id number] 00:00:00 1 HPV 2013-02-18 Completed NPI:[id number] 00:00:00 1 HPV 2013-02-18 Completed NPI:[id number] 00:00:00 1 HPV 2013-02-18 Completed NPI:[id number] 00:00:00 1 HPV 2013-02-18 Completed NPI:[id number] 00:00:00 1 HPV 2013-02-18 Completed NPI:[id number] 00:00:00 1 HPV 2013-02-18 Completed NPI:[id number] 00:00:00 1 HPV 2013-02-18 Completed NPI:[id number] 00:00:00 1 HPV 2013-02-18 Completed NPI:[id number] 00:00:00 1 HPV 2013-02-18 Completed NPI:[id number] 00:00:00 1 HPV 2013-02-18 Completed NPI:[id number] 00:00:00 1 HPV 2013-02-18 Completed NPI:[id number] 00:00:00 1 HPV 2013-02-18 Completed NPI:[id number] 00:00:00 1 HPV 2013-02-18 Completed NPI:[id number] 00:00:00 1 HPV 2013-02-18 Completed NPI:[id number] 00:00:00 1 HPV 2013-02-18 Completed NPI:[id number] 00:00:00 1 HPV 2013-02-18 Completed NPI:[id number] 00:00:00 1 HPV 2013-02-18 Completed NPI:[id number] 00:00:00 1 HPV 2013-02-18 Completed NPI:[id number] 00:00:00 1 HPV 2013-02-18 Completed NPI:[id number] 00:00:00 1 HPV 2012-10-02 Completed NPI:[id number] 00:00:00 1 HPV 2012-10-02 Completed NPI:[id number] 00:00:00 1 HPV 2012-10-02 Completed NPI:[id number] 00:00:00 1 HPV 2012-10-02 Completed NPI:[id number] 00:00:00 1 HPV 2012-10-02 Completed NPI:[id number] 00:00:00 1 HPV 2012-10-02 Completed NPI:[id number] 00:00:00 1 HPV 2012-10-02 Completed NPI:[id number] 00:00:00 1 HPV 2012-10-02 Completed NPI:[id number] 00:00:00 1 HPV 2012-10-02 Completed NPI:[id number] 00:00:00 1 HPV 2012-10-02 Completed NPI:[id number] 00:00:00 1 HPV 2012-10-02 Completed NPI:[id number] 00:00:00 1 HPV 2012-10-02 Completed NPI:[id number] 00:00:00 1 HPV 2012-10-02 Completed NPI:[id number] 00:00:00 1 HPV 2012-10-02 Completed NPI:[id number] 00:00:00 1 HPV 2012-10-02 Completed NPI:[id number] 00:00:00 1 HPV 2012-10-02 Completed NPI:[id number] 00:00:00 1 HPV 2012-10-02 Completed NPI:[id number] 00:00:00 1 HPV 2012-10-02 Completed NPI:[id number] 00:00:00 1 HPV 2012-10-02 Completed NPI:[id number] 00:00:00 1 HPV 2012-10-02 Completed NPI:[id number] 00:00:00 1 HPV 2012-10-02 Completed NPI:[id number] 00:00:00 1 HPV 2012-10-02 Completed NPI:[id number] 00:00:00 1 HPV 2012-10-02 Completed NPI:[id number] 00:00:00 1 HPV 2012-10-02 Completed NPI:[id number] 00:00:00 1 HPV 2012-10-02 Completed NPI:[id number] 00:00:00 1 HPV 2012-10-02 Completed NPI:[id number] 00:00:00 1 HPV 2012-10-02 Completed NPI:[id number] 00:00:00 1 HPV 2012-10-02 Completed NPI:[id number] 00:00:00 1 Meningococcal 2011-09-07 Completed NPI:[id number] Polysaccharide (groups 00:00:00 1 A, C, Y and W-135) conjugate vaccine (MCV4P) TDAP (ADACEL) VACCINE 2011-09-07 Completed NPI :[id number] 00:00:00 1 Meningococcal 2011-09-07 Completed NPI:[id number] Polysaccharide (groups 00:00:00 1 A, C, Y and W-135) conjugate vaccine (MCV4P) TDAP (ADACEL) VACCINE 2011-09-07 Completed NPI :[id number] 00:00:00 1 TDAP (ADACEL) VACCINE 2011-09-07 Completed NPI :[id number] 00:00:00 1 Meningococcal 2011-09-07 Completed NPI:[id number] 78 Polysaccharide (groups 00:00:00 1 A, C, Y and W-135) conjugate vaccine (MCV4P) TDAP (ADACEL) VACCINE 2011-09-07 Completed NPI :[id number] 00:00:00 1 Meningococcal 2011-09-07 Completed NPI:[id number] Polysaccharide (groups 00:00:00 1 A, C, Y and W-135) conjugate vaccine (MCV4P) TDAP (ADACEL) VACCINE 2011-09-07 Completed NPI :[id number] 00:00:00 1 Meningococcal 2011-09-07 Completed NPI:[id number] 78 Polysaccharide (groups 00:00:00 1 A, C, Y and W-135) conjugate vaccine (MCV4P) Meningococcal 2011-09-07 Completed NPI:[id number] 78 Polysaccharide (groups 00:00:00 1 A, C, Y and W-135) conjugate vaccine (MCV4P) TDAP (ADACEL) VACCINE 2011-09-07 Completed NPI :[id number] 00:00:00 1 Meningococcal 2011-09-07 Completed NPI:[id number] Polysaccharide (groups 00:00:00 1 A, C, Y and W-135) conjugate vaccine (MCV4P) TDAP (ADACEL) VACCINE 2011-09-07 Completed NPI :[id number] 00:00:00 1 Meningococcal 2011-09-07 Completed NPI:[id number] Polysaccharide (groups 00:00:00 1 A, C, Y and W-135) conjugate vaccine (MCV4P) TDAP (ADACEL) VACCINE 2011-09-07 Completed NPI :[id number] 00:00:00 1 TDAP (ADACEL) VACCINE 2011-09-07 Completed NPI :[id number] 00:00:00 1 Meningococcal 2011-09-07 Completed NPI:[id number] 78 Polysaccharide (groups 00:00:00 1 A, C, Y and W-135) conjugate vaccine (MCV4P) TDAP (ADACEL) VACCINE 2011-09-07 Completed NPI :[id number] 00:00:00 1 Meningococcal 2011-09-07 Completed NPI:[id number] Polysaccharide (groups 00:00:00 1 A, C, Y and W-135) conjugate vaccine (MCV4P) TDAP (ADACEL) VACCINE 2011-09-07 Completed NPI :[id number] 00:00:00 1 Meningococcal 2011-09-07 Completed NPI:[id number] 78 Polysaccharide (groups 00:00:00 1 A, C, Y and W-135) conjugate vaccine (MCV4P) TDAP (ADACEL) VACCINE 2011-09-07 Completed NPI :[id number] 00:00:00 1 Meningococcal 2011-09-07 Completed NPI:[id number] 78 Polysaccharide (groups 00:00:00 1 A, C, Y and W-135) conjugate vaccine (MCV4P) Meningococcal 2011-09-07 Completed NPI:[id number] 78 Polysaccharide (groups 00:00:00 1 A, C, Y and W-135) conjugate vaccine (MCV4P) TDAP (ADACEL) VACCINE 2011-09-07 Completed NPI :[id number] 00:00:00 1 Meningococcal 2011-09-07 Completed NPI:[id number] 78 Polysaccharide (groups 00:00:00 1 A, C, Y and W-135) conjugate vaccine (MCV4P) TDAP (ADACEL) VACCINE 2011-09-07 Completed NPI :[id number] 00:00:00 1 Meningococcal 2011-09-07 Completed NPI:[id number] 78 Polysaccharide (groups 00:00:00 1 A, C, Y and W-135) conjugate vaccine (MCV4P) TDAP (ADACEL) VACCINE 2011-09-07 Completed NPI :[id number] 00:00:00 1 Meningococcal 2011-09-07 Completed NPI:[id number] 78 Polysaccharide (groups 00:00:00 1 A, C, Y and W-135) conjugate vaccine (MCV4P) TDAP (ADACEL) VACCINE 2011-09-07 Completed NPI :[id number] 00:00:00 1 Meningococcal 2011-09-07 Completed NPI:[id number] 78 Polysaccharide (groups 00:00:00 1 A, C, Y and W-135) conjugate vaccine (MCV4P) TDAP (ADACEL) VACCINE 2011-09-07 Completed NPI :[id number] 00:00:00 1 Meningococcal 2011-09-07 Completed NPI:[id number] 78 Polysaccharide (groups 00:00:00 1 A, C, Y and W-135) conjugate vaccine (MCV4P) TDAP (ADACEL) VACCINE 2011-09-07 Completed NPI :[id number] 00:00:00 1 Meningococcal 2011-09-07 Completed NPI:[id number] Polysaccharide (groups 00:00:00 1 A, C, Y and W-135) conjugate vaccine (MCV4P) TDAP (ADACEL) VACCINE 2011-09-07 Completed NPI :[id number] 00:00:00 1 TDAP (ADACEL) VACCINE 2011-09-07 Completed NPI :[id number] 00:00:00 1 Meningococcal 2011-09-07 Completed NPI:[id number] 78 Polysaccharide (groups 00:00:00 1 A, C, Y and W-135) conjugate vaccine (MCV4P) TDAP (ADACEL) VACCINE 2011-09-07 Completed NPI :[id number] 00:00:00 1 Meningococcal 2011-09-07 Completed NPI:[id number] 78 Polysaccharide (groups 00:00:00 1 A, C, Y and W-135) conjugate vaccine (MCV4P) TDAP (ADACEL) VACCINE 2011-09-07 Completed NPI :[id number] 00:00:00 1 Meningococcal 2011-09-07 Completed NPI:[id number] 78 Polysaccharide (groups 00:00:00 1 A, C, Y and W-135) conjugate vaccine (MCV4P) TDAP (ADACEL) VACCINE 2011-09-07 Completed NPI :[id number] 00:00:00 1 Meningococcal 2011-09-07 Completed NPI:[id number] 78 Polysaccharide (groups 00:00:00 1 A, C, Y and W-135) conjugate vaccine (MCV4P) Meningococcal 2011-09-07 Completed NPI:[id number] 78 Polysaccharide (groups 00:00:00 1 A, C, Y and W-135) conjugate vaccine (MCV4P) TDAP (ADACEL) VACCINE 2011-09-07 Completed NPI :[id number] 00:00:00 1 Meningococcal 2011-09-07 Completed NPI:[id number] 78 Polysaccharide (groups 00:00:00 1 A, C, Y and W-135) conjugate vaccine (MCV4P) TDAP (ADACEL) VACCINE 2011-09-07 Completed NPI :[id number] 00:00:00 1 Meningococcal 2011-09-07 Completed NPI:[id number] 78 Polysaccharide (groups 00:00:00 1 A, C, Y and W-135) conjugate vaccine (MCV4P) TDAP (ADACEL) VACCINE 2011-09-07 Completed NPI :[id number] 00:00:00 1 Meningococcal 2011-09-07 Completed NPI:[id number] 78 Polysaccharide (groups 00:00:00 1 A, C, Y and W-135) conjugate vaccine (MCV4P) TDAP (ADACEL) VACCINE 2011-09-07 Completed NPI :[id number] 00:00:00 1 Meningococcal 2011-09-07 Completed NPI:[id number] Polysaccharide (groups 00:00:00 1 A, C, Y and W-135) conjugate vaccine (MCV4P) TDAP (ADACEL) VACCINE 2011-09-07 Completed NPI :[id number] 00:00:00 1 HIB 3 Dose Schedule 2011-05-22 Completed NPI:1 [id number] 00:00:00 1 HIB 3 Dose Schedule 2011-05-22 Completed NPI:1 [id number] 00:00:00 1 HIB 3 Dose Schedule 2011-05-22 Completed NPI:1 [id number] 00:00:00 1 HIB 3 Dose Schedule 2011-05-22 Completed NPI:1 [id number] 00:00:00 1 HIB 3 Dose Schedule 2011-05-22 Completed NPI:1 [id number] 00:00:00 1 HIB 3 Dose Schedule 2011-05-22 Completed NPI:1 [id number] 00:00:00 1 HIB 3 Dose Schedule 2011-05-22 Completed NPI:1 [id number] 00:00:00 1 HIB 3 Dose Schedule 2011-05-22 Completed NPI:1 [id number] 00:00:00 1 HIB 3 Dose Schedule 2011-05-22 Completed NPI:1 [id number] 00:00:00 1 HIB 3 Dose Schedule 2011-05-22 Completed NPI:1 [id number] 00:00:00 1 HIB 3 Dose Schedule 2011-05-22 Completed NPI:1 [id number] 00:00:00 1 HIB 3 Dose Schedule 2011-05-22 Completed NPI:1 [id number] 00:00:00 1 HIB 3 Dose Schedule 2011-05-22 Completed NPI:1 [id number] 00:00:00 1 HIB 3 Dose Schedule 2011-05-22 Completed NPI:1 [id number] 00:00:00 1 HIB 3 Dose Schedule 2011-05-22 Completed NPI:1 [id number] 00:00:00 1 HIB 3 Dose Schedule 2011-05-22 Completed NPI:1 [id number] 00:00:00 1 HIB 3 Dose Schedule 2011-05-22 Completed NPI:1 [id number] 00:00:00 1 HIB 3 Dose Schedule 2011-05-22 Completed NPI:1 [id number] 00:00:00 1 HIB 3 Dose Schedule 2011-05-22 Completed NPI:1 [id number] 00:00:00 1 HIB 3 Dose Schedule 2011-05-22 Completed NPI:1 [id number] 00:00:00 1 HIB 3 Dose Schedule 2011-05-22 Completed NPI:1 [id number] 00:00:00 1 HIB 3 Dose Schedule 2011-05-22 Completed NPI:1 [id number] 00:00:00 1 HIB 3 Dose Schedule 2011-05-22 Completed NPI:1 [id number] 00:00:00 1 HIB 3 Dose Schedule 2011-05-22 Completed NPI:1 [id number] 00:00:00 1 HIB 3 Dose Schedule 2011-05-22 Completed NPI:1 [id number] 00:00:00 1 HIB 3 Dose Schedule 2011-05-22 Completed NPI:1 [id number] 00:00:00 1 HIB 3 Dose Schedule 2011-05-22 Completed NPI:1 [id number] 00:00:00 1 HIB 3 Dose Schedule 2011-05-22 Completed NPI:1 [id number] 00:00:00 1 Varicella 2006-06-16 Completed NPI:[id number] (varivax)(chicken pox) 00:00:00 1 Varicella 2006-06-16 Completed NPI:[id number] (varivax)(chicken pox) 00:00:00 1 Varicella 2006-06-16 Completed NPI:[id number] (varivax)(chicken pox) 00:00:00 1 Varicella 2006-06-16 Completed NPI:[id number] (varivax)(chicken pox) 00:00:00 1 Varicella 2006-06-16 Completed NPI:[id number] (varivax)(chicken pox) 00:00:00 1 Varicella 2006-06-16 Completed NPI:[id number] (varivax)(chicken pox) 00:00:00 1 Varicella 2006-06-16 Completed NPI:[id number] (varivax)(chicken pox) 00:00:00 1 Varicella 2006-06-16 Completed NPI:[id number] (varivax)(chicken pox) 00:00:00 1 Varicella 2006-06-16 Completed NPI:[id number] (varivax)(chicken pox) 00:00:00 1 Varicella 2006-06-16 Completed NPI:[id number] (varivax)(chicken pox) 00:00:00 1 Varicella 2006-06-16 Completed NPI:[id number] (varivax)(chicken pox) 00:00:00 1 Varicella 2006-06-16 Completed NPI:[id number] (varivax)(chicken pox) 00:00:00 1 Varicella 2006-06-16 Completed NPI:[id number] (varivax)(chicken pox) 00:00:00 1 Varicella 2006-06-16 Completed NPI:[id number] (varivax)(chicken pox) 00:00:00 1 Varicella 2006-06-16 Completed NPI:[id number] (varivax)(chicken pox) 00:00:00 1 Varicella 2006-06-16 Completed NPI:[id number] (varivax)(chicken pox) 00:00:00 1 Varicella 2006-06-16 Completed NPI:[id number] (varivax)(chicken pox) 00:00:00 1 Varicella 2006-06-16 Completed NPI:[id number] (varivax)(chicken pox) 00:00:00 1 Varicella 2006-06-16 Completed NPI:[id number] (varivax)(chicken pox) 00:00:00 1 Varicella 2006-06-16 Completed NPI:[id number] (varivax)(chicken pox) 00:00:00 1 Varicella 2006-06-16 Completed NPI:[id number] (varivax)(chicken pox) 00:00:00 1 Varicella 2006-06-16 Completed NPI:[id number] (varivax)(chicken pox) 00:00:00 1 Varicella 2006-06-16 Completed NPI:[id number] (varivax)(chicken pox) 00:00:00 1 Varicella 2006-06-16 Completed NPI:[id number] (varivax)(chicken pox) 00:00:00 1 Varicella 2006-06-16 Completed NPI:[id number] (varivax)(chicken pox) 00:00:00 1 Varicella 2006-06-16 Completed NPI:[id number] (varivax)(chicken pox) 00:00:00 1 Varicella 2006-06-16 Completed NPI:[id number] (varivax)(chicken pox) 00:00:00 1 Varicella 2006-06-16 Completed NPI:[id number] (varivax)(chicken pox) 00:00:00 1 MMR 2004-05-20 Completed NPI:[id number] 00:00:00 1 Polio (IPV/OPV) 2004-05-20 Completed NPI:[id number] 00:00:00 1 DTAP 2004-05-20 Completed NPI:[id number] 00:00:00 1 MMR 2004-05-20 Completed NPI:[id number] 00:00:00 1 Polio (IPV/OPV) 2004-05-20 Completed NPI:[id number] 00:00:00 1 DTAP 2004-05-20 Completed NPI:[id number] 00:00:00 1 MMR 2004-05-20 Completed NPI:[id number] 00:00:00 1 Polio (IPV/OPV) 2004-05-20 Completed NPI:[id number] 00:00:00 1 DTAP 2004-05-20 Completed NPI:[id number] 00:00:00 1 DTAP 2004-05-20 Completed NPI:[id number] 00:00:00 1 MMR 2004-05-20 Completed NPI:[id number] 00:00:00 1 Polio (IPV/OPV) 2004-05-20 Completed NPI:[id number] 00:00:00 1 DTAP 2004-05-20 Completed NPI:[id number] 00:00:00 1 MMR 2004-05-20 Completed NPI:[id number] 00:00:00 1 Polio (IPV/OPV) 2004-05-20 Completed NPI:[id number] 00:00:00 1 MMR 2004-05-20 Completed NPI:[id number] 00:00:00 1 DTAP 2004-05-20 Completed NPI:[id number] 00:00:00 1 MMR 2004-05-20 Completed NPI:[id number] 00:00:00 1 Polio (IPV/OPV) 2004-05-20 Completed NPI:[id number] 00:00:00 1 Polio (IPV/OPV) 2004-05-20 Completed NPI:[id number] 00:00:00 1 DTAP 2004-05-20 Completed NPI:[id number] 00:00:00 1 MMR 2004-05-20 Completed NPI:[id number] 00:00:00 1 Polio (IPV/OPV) 2004-05-20 Completed NPI:[id number] 00:00:00 1 DTAP 2004-05-20 Completed NPI:[id number] 00:00:00 1 MMR 2004-05-20 Completed NPI:[id number] 00:00:00 1 Polio (IPV/OPV) 2004-05-20 Completed NPI:[id number] 00:00:00 1 DTAP 2004-05-20 Completed NPI:[id number] 00:00:00 1 DTAP 2004-05-20 Completed NPI:[id number] 00:00:00 1 MMR 2004-05-20 Completed NPI:[id number] 00:00:00 1 Polio (IPV/OPV) 2004-05-20 Completed NPI:[id number] [id number] 00:00:00 1 DTAP 2004-05-20 Completed NPI:[id number] 00:00:00 1 MMR 2004-05-20 Completed NPI:[id number] 00:00:00 1 Polio (IPV/OPV) 2004-05-20 Completed NPI:[id number] 1878 00:00:00 1 DTAP 2004-05-20 Completed NPI:[id number] 00:00:00 1 MMR 2004-05-20 Completed NPI:[id number] 00:00:00 1 Polio (IPV/OPV) 2004-05-20 Completed NPI:[id number] 1878 00:00:00 1 MMR 2004-05-20 Completed NPI:[id number] 00:00:00 1 DTAP 2004-05-20 Completed NPI:[id number] 00:00:00 1 MMR 2004-05-20 Completed NPI:[id number] 00:00:00 1 Polio (IPV/OPV) 2004-05-20 Completed NPI:[id number] 1878 00:00:00 1 DTAP 2004-05-20 Completed NPI:[id number] 00:00:00 1 MMR 2004-05-20 Completed NPI:[id number] 00:00:00 1 Polio (IPV/OPV) 2004-05-20 Completed NPI:[id number] 1878 00:00:00 1 Polio (IPV/OPV) 2004-05-20 Completed NPI:[id number] 1878 00:00:00 1 DTAP 2004-05-20 Completed NPI:[id number] 00:00:00 1 MMR 2004-05-20 Completed NPI:[id number] 00:00:00 1 Polio (IPV/OPV) 2004-05-20 Completed NPI:[id number] 1878 00:00:00 1 DTAP 2004-05-20 Completed NPI:[id number] 00:00:00 1 MMR 2004-05-20 Completed NPI:[id number] 00:00:00 1 Polio (IPV/OPV) 2004-05-20 Completed NPI:[id number] 1878 00:00:00 1 DTAP 2004-05-20 Completed NPI:[id number] 00:00:00 1 MMR 2004-05-20 Completed NPI:[id number] 00:00:00 1 Polio (IPV/OPV) 2004-05-20 Completed NPI:[id number] 1878 00:00:00 1 DTAP 2004-05-20 Completed NPI:[id number] 00:00:00 1 MMR 2004-05-20 Completed NPI:[id number] 00:00:00 1 Polio (IPV/OPV) 2004-05-20 Completed NPI:[id number] 1878 00:00:00 1 DTAP 2004-05-20 Completed NPI:[id number] 00:00:00 1 MMR 2004-05-20 Completed NPI:[id number] 00:00:00 1 Polio (IPV/OPV) 2004-05-20 Completed NPI:[id number] 1878 00:00:00 1 DTAP 2004-05-20 Completed NPI:[id number] 00:00:00 1 DTAP 2004-05-20 Completed NPI:[id number] 00:00:00 1 MMR 2004-05-20 Completed NPI:[id number] 00:00:00 1 Polio (IPV/OPV) 2004-05-20 Completed NPI:[id number] 1878 00:00:00 1 DTAP 2004-05-20 Completed NPI:[id number] 00:00:00 1 MMR 2004-05-20 Completed NPI:[id number] 00:00:00 1 Polio (IPV/OPV) 2004-05-20 Completed NPI:[id number] 1878 00:00:00 1 DTAP 2004-05-20 Completed NPI:[id number] 00:00:00 1 MMR 2004-05-20 Completed NPI:[id number] 00:00:00 1 Polio (IPV/OPV) 2004-05-20 Completed NPI:[id number] 1878 00:00:00 1 MMR 2004-05-20 Completed NPI:[id number] 00:00:00 1 DTAP 2004-05-20 Completed NPI:[id number] 00:00:00 1 MMR 2004-05-20 Completed NPI:[id number] 00:00:00 1 Polio (IPV/OPV) 2004-05-20 Completed NPI:[id number] 1878 00:00:00 1 DTAP 2004-05-20 Completed NPI:[id number] 00:00:00 1 MMR 2004-05-20 Completed NPI:[id number] 00:00:00 1 Polio (IPV/OPV) 2004-05-20 Completed NPI:[id number] 1878 00:00:00 1 Polio (IPV/OPV) 2004-05-20 Completed NPI:[id number] 1878 00:00:00 1 DTAP 2004-05-20 Completed NPI:[id number] 00:00:00 1 MMR 2004-05-20 Completed NPI:[id number] 00:00:00 1 Polio (IPV/OPV) 2004-05-20 Completed NPI:[id number] 1878 00:00:00 1 DTAP 2004-05-20 Completed NPI:[id number] 00:00:00 1 MMR 2004-05-20 Completed NPI:[id number] 00:00:00 1 Polio (IPV/OPV) 2004-05-20 Completed NPI:[id number] 1878 00:00:00 1 DTAP 2004-05-20 Completed NPI:[id number] 00:00:00 1 HEPATITIS A 2003-05-20 Completed NPI:[id number] 00:00:00 1 HEPATITIS A 2003-05-20 Completed NPI:[id number] 00:00:00 1 HEPATITIS A 2003-05-20 Completed NPI:[id number] 00:00:00 1 HEPATITIS A 2003-05-20 Completed NPI:[id number] 00:00:00 1 HEPATITIS A 2003-05-20 Completed NPI:[id number] 00:00:00 1 HEPATITIS A 2003-05-20 Completed NPI:[id number] 00:00:00 1 HEPATITIS A 2003-05-20 Completed NPI:[id number] 00:00:00 1 HEPATITIS A 2003-05-20 Completed NPI:[id number] 00:00:00 1 HEPATITIS A 2003-05-20 Completed NPI:[id number] 00:00:00 1 HEPATITIS A 2003-05-20 Completed NPI:[id number] 00:00:00 1 HEPATITIS A 2003-05-20 Completed NPI:[id number] 00:00:00 1 HEPATITIS A 2003-05-20 Completed NPI:[id number] 00:00:00 1 HEPATITIS A 2003-05-20 Completed NPI:[id number] 00:00:00 1 HEPATITIS A 2003-05-20 Completed NPI:[id number] 00:00:00 1 HEPATITIS A 2003-05-20 Completed NPI:[id number] 00:00:00 1 HEPATITIS A 2003-05-20 Completed NPI:[id number] 00:00:00 1 HEPATITIS A 2003-05-20 Completed NPI:[id number] 00:00:00 1 HEPATITIS A 2003-05-20 Completed NPI:[id number] 00:00:00 1 HEPATITIS A 2003-05-20 Completed NPI:[id number] 00:00:00 1 HEPATITIS A 2003-05-20 Completed NPI:[id number] 00:00:00 1 HEPATITIS A 2003-05-20 Completed NPI:[id number] 00:00:00 1 HEPATITIS A 2003-05-20 Completed NPI:[id number] 00:00:00 1 HEPATITIS A 2003-05-20 Completed NPI:[id number] 00:00:00 1 HEPATITIS A 2003-05-20 Completed NPI:[id number] 00:00:00 1 HEPATITIS A 2003-05-20 Completed NPI:[id number] 00:00:00 1 HEPATITIS A 2003-05-20 Completed NPI:[id number] 00:00:00 1 HEPATITIS A 2003-05-20 Completed NPI:[id number] 00:00:00 1 HEPATITIS A 2003-05-20 Completed NPI:[id number] 00:00:00 1 HEPATITIS A 2002-05-21 Completed NPI:[id number] 00:00:00 1 HEPATITIS A 2002-05-21 Completed NPI:[id number] 00:00:00 1 HEPATITIS A 2002-05-21 Completed NPI:[id number] 00:00:00 1 HEPATITIS A 2002-05-21 Completed NPI:[id number] 00:00:00 1 HEPATITIS A 2002-05-21 Completed NPI:[id number] 00:00:00 1 HEPATITIS A 2002-05-21 Completed NPI:[id number] 00:00:00 1 HEPATITIS A 2002-05-21 Completed NPI:[id number] 00:00:00 1 HEPATITIS A 2002-05-21 Completed NPI:[id number] 00:00:00 1 HEPATITIS A 2002-05-21 Completed NPI:[id number] 00:00:00 1 HEPATITIS A 2002-05-21 Completed NPI:[id number] 00:00:00 1 HEPATITIS A 2002-05-21 Completed NPI:[id number] 00:00:00 1 HEPATITIS A 2002-05-21 Completed NPI:[id number] 00:00:00 1 HEPATITIS A 2002-05-21 Completed NPI:[id number] 00:00:00 1 HEPATITIS A 2002-05-21 Completed NPI:[id number] 00:00:00 1 HEPATITIS A 2002-05-21 Completed NPI:[id number] 00:00:00 1 HEPATITIS A 2002-05-21 Completed NPI:[id number] 00:00:00 1 HEPATITIS A 2002-05-21 Completed NPI:[id number] 00:00:00 1 HEPATITIS A 2002-05-21 Completed NPI:[id number] 00:00:00 1 HEPATITIS A 2002-05-21 Completed NPI:[id number] 00:00:00 1 HEPATITIS A 2002-05-21 Completed NPI:[id number] 00:00:00 1 HEPATITIS A 2002-05-21 Completed NPI:[id number] 00:00:00 1 HEPATITIS A 2002-05-21 Completed NPI:[id number] 00:00:00 1 HEPATITIS A 2002-05-21 Completed NPI:[id number] 00:00:00 1 HEPATITIS A 2002-05-21 Completed NPI:[id number] 00:00:00 1 HEPATITIS A 2002-05-21 Completed NPI:[id number] 00:00:00 1 HEPATITIS A 2002-05-21 Completed NPI:[id number] 00:00:00 1 HEPATITIS A 2002-05-21 Completed NPI:[id number] 00:00:00 1 HEPATITIS A 2002-05-21 Completed NPI:[id number] 00:00:00 1 Polio (IPV/OPV) 2001-11-29 Completed NPI:[id number] 1878 00:00:00 1 Polio (IPV/OPV) 2001-11-29 Completed NPI:[id number] 1878 00:00:00 1 Polio (IPV/OPV) 2001-11-29 Completed NPI:[id number] 1878 00:00:00 1 Polio (IPV/OPV) 2001-11-29 Completed NPI:[id number] 1878 00:00:00 1 Polio (IPV/OPV) 2001-11-29 Completed NPI:[id number] 1878 00:00:00 1 Polio (IPV/OPV) 2001-11-29 Completed NPI:[id number] 1878 00:00:00 1 Polio (IPV/OPV) 2001-11-29 Completed NPI:[id number] 1878 00:00:00 1 Polio (IPV/OPV) 2001-11-29 Completed NPI:[id number] 1878 00:00:00 1 Polio (IPV/OPV) 2001-11-29 Completed NPI:[id number] 1878 00:00:00 1 Polio (IPV/OPV) 2001-11-29 Completed NPI:[id number] 1878 00:00:00 1 Polio (IPV/OPV) 2001-11-29 Completed NPI:[id number] 1878 00:00:00 1 Polio (IPV/OPV) 2001-11-29 Completed NPI:[id number] 1878 00:00:00 1 Polio (IPV/OPV) 2001-11-29 Completed NPI:[id number] 1878 00:00:00 1 Polio (IPV/OPV) 2001-11-29 Completed NPI:[id number] 1878 00:00:00 1 Polio (IPV/OPV) 2001-11-29 Completed NPI:[id number] 1878 00:00:00 1 Polio (IPV/OPV) 2001-11-29 Completed NPI:[id number] 1878 00:00:00 1 Polio (IPV/OPV) 2001-11-29 Completed NPI:[id number] 1878 00:00:00 1 Polio (IPV/OPV) 2001-11-29 Completed NPI:[id number] 1878 00:00:00 1 Polio (IPV/OPV) 2001-11-29 Completed NPI:[id number] 1878 00:00:00 1 Polio (IPV/OPV) 2001-11-29 Completed NPI:[id number] 1878 00:00:00 1 Polio (IPV/OPV) 2001-11-29 Completed NPI:[id number] 1878 00:00:00 1 Polio (IPV/OPV) 2001-11-29 Completed NPI:[id number] 1878 00:00:00 1 Polio (IPV/OPV) 2001-11-29 Completed NPI:[id number] 1878 00:00:00 1 Polio (IPV/OPV) 2001-11-29 Completed NPI:[id number] 1878 00:00:00 1 Polio (IPV/OPV) 2001-11-29 Completed NPI:[id number] 1878 00:00:00 1 Polio (IPV/OPV) 2001-11-29 Completed NPI:[id number] 1878 00:00:00 1 Polio (IPV/OPV) 2001-11-29 Completed NPI:[id number] 1878 00:00:00 1 Polio (IPV/OPV) 2001-11-29 Completed NPI:[id number] 1878 00:00:00 1 DTAP 2001-11-28 Completed NPI:[id number] 00:00:00 1 DTAP 2001-11-28 Completed NPI:[id number] 00:00:00 1 DTAP 2001-11-28 Completed NPI:[id number] 00:00:00 1 DTAP 2001-11-28 Completed NPI:[id number] 00:00:00 1 DTAP 2001-11-28 Completed NPI:[id number] 00:00:00 1 DTAP 2001-11-28 Completed NPI:[id number] 00:00:00 1 DTAP 2001-11-28 Completed NPI:[id number] 00:00:00 1 DTAP 2001-11-28 Completed NPI:[id number] 00:00:00 1 DTAP 2001-11-28 Completed NPI:[id number] 00:00:00 1 DTAP 2001-11-28 Completed NPI:[id number] 00:00:00 1 DTAP 2001-11-28 Completed NPI:[id number] 00:00:00 1 DTAP 2001-11-28 Completed NPI:[id number] 00:00:00 1 DTAP 2001-11-28 Completed NPI:[id number] 00:00:00 1 DTAP 2001-11-28 Completed NPI:[id number] 00:00:00 1 DTAP 2001-11-28 Completed NPI:[id number] 00:00:00 1 DTAP 2001-11-28 Completed NPI:[id number] 00:00:00 1 DTAP 2001-11-28 Completed NPI:[id number] 00:00:00 1 DTAP 2001-11-28 Completed NPI:[id number] 00:00:00 1 DTAP 2001-11-28 Completed NPI:[id number] 00:00:00 1 DTAP 2001-11-28 Completed NPI:[id number] 00:00:00 1 DTAP 2001-11-28 Completed NPI:[id number] 00:00:00 1 DTAP 2001-11-28 Completed NPI:[id number] 00:00:00 1 DTAP 2001-11-28 Completed NPI:[id number] 00:00:00 1 DTAP 2001-11-28 Completed NPI:[id number] 00:00:00 1 DTAP 2001-11-28 Completed NPI:[id number] 00:00:00 1 DTAP 2001-11-28 Completed NPI:[id number] 00:00:00 1 DTAP 2001-11-28 Completed NPI:[id number] 00:00:00 1 DTAP 2001-11-28 Completed NPI:[id number] 00:00:00 1 [facility] 2001-05-22 Completed NPI:[id number] (varivax)(chicken pox) 00:00:00 1 MMR 2001-05-22 Completed NPI:[id number] 00:00:00 1 Pneumococcal 13 2001-05-22 Completed NPI:[id number] 1878 Conjugate, PCV13 00:00:00 1 (Prevnar 13) Varicella 2001-05-22 Completed NPI:[id number] (varivax)(chicken pox) 00:00:00 1 MMR 2001-05-22 Completed NPI:[id number] 00:00:00 1 Pneumococcal 13 2001-05-22 Completed NPI:[id number] 1878 Conjugate, PCV13 00:00:00 1 (Prevnar 13) Varicella 2001-05-22 Completed NPI:[id number] (varivax)(chicken pox) 00:00:00 1 MMR 2001-05-22 Completed NPI:[id number] 00:00:00 1 MMR 2001-05-22 Completed NPI:[id number] 00:00:00 1 Pneumococcal 13 2001-05-22 Completed NPI:[id number] 1878 Conjugate, PCV13 00:00:00 1 (Prevnar 13) Varicella 2001-05-22 Completed NPI:[id number] (varivax)(chicken pox) 00:00:00 1 Pneumococcal 13 2001-05-22 Completed NPI:[id number] 1878 Conjugate, PCV13 00:00:00 1 (Prevnar 13) MMR 2001-05-22 Completed NPI:[id number] 00:00:00 1 Pneumococcal 13 2001-05-22 Completed NPI:[id number] 1878 Conjugate, PCV13 00:00:00 1 (Prevnar 13) Varicella 2001-05-22 Completed NPI:[id number] (varivax)(chicken pox) 00:00:00 1 Varicella 2001-05-22 Completed NPI:[id number] (varivax)(chicken pox) 00:00:00 1 MMR 2001-05-22 Completed NPI:[id number] 00:00:00 1 Pneumococcal 13 2001-05-22 Completed NPI:[id number] 1878 Conjugate, PCV13 00:00:00 1 (Prevnar 13) Varicella 2001-05-22 Completed NPI:[id number] (varivax)(chicken pox) 00:00:00 1 MMR 2001-05-22 Completed NPI:[id number] 00:00:00 1 Pneumococcal 13 2001-05-22 Completed NPI:[id number] 1878 Conjugate, PCV13 00:00:00 1 (Prevnar 13) Varicella 2001-05-22 Completed NPI:[id number] (varivax)(chicken pox) 00:00:00 1 MMR 2001-05-22 Completed NPI:[id number] 00:00:00 1 Pneumococcal 13 2001-05-22 Completed NPI:36802 1878 Conjugate, PCV13 00:00:00 1 (Prevnar 13) Varicella 2001-05-22 Completed NPI:[id number] (varivax)(chicken pox) 00:00:00 1 MMR 2001-05-22 Completed NPI:[id number] 00:00:00 1 Pneumococcal 13 2001-05-22 Completed NPI:[id number] 1878 Conjugate, PCV13 00:00:00 1 (Prevnar 13) Varicella 2001-05-22 Completed NPI:[id number] (varivax)(chicken pox) 00:00:00 1 MMR 2001-05-22 Completed NPI:[id number] 00:00:00 1 Pneumococcal 13 2001-05-22 Completed NPI:[id number] 1878 Conjugate, PCV13 00:00:00 1 (Prevnar 13) Varicella 2001-05-22 Completed NPI:[id number] (varivax)(chicken pox) 00:00:00 1 MMR 2001-05-22 Completed NPI:[id number] 00:00:00 1 Pneumococcal 13 2001-05-22 Completed NPI:[id number] 1878 Conjugate, PCV13 00:00:00 1 (Prevnar 13) Varicella 2001-05-22 Completed NPI:[id number] (varivax)(chicken pox) 00:00:00 1 MMR 2001-05-22 Completed NPI:[id number] 00:00:00 1 Pneumococcal 13 2001-05-22 Completed NPI:[id number] 1878 Conjugate, PCV13 00:00:00 1 (Prevnar 13) Varicella 2001-05-22 Completed NPI:[id number] (varivax)(chicken pox) 00:00:00 1 MMR 2001-05-22 Completed NPI:[id number] 00:00:00 1 Pneumococcal 13 2001-05-22 Completed NPI:[id number] 1878 Conjugate, PCV13 00:00:00 1 (Prevnar 13) Varicella 2001-05-22 Completed NPI:[id number] (varivax)(chicken pox) 00:00:00 1 MMR 2001-05-22 Completed NPI:[id number] 00:00:00 1 MMR 2001-05-22 Completed NPI:[id number] 00:00:00 1 Pneumococcal 13 2001-05-22 Completed NPI:[id number] 1878 Conjugate, PCV13 00:00:00 1 (Prevnar 13) Varicella 2001-05-22 Completed NPI:[id number] (varivax)(chicken pox) 00:00:00 1 Pneumococcal 13 2001-05-22 Completed NPI:[id number] 1878 Conjugate, PCV13 00:00:00 1 (Prevnar 13) MMR 2001-05-22 Completed NPI:[id number] 00:00:00 1 Pneumococcal 13 2001-05-22 Completed NPI:[id number] 1878 Conjugate, PCV13 00:00:00 1 (Prevnar 13) Varicella 2001-05-22 Completed NPI:[id number] (varivax)(chicken pox) 00:00:00 1 Varicella 2001-05-22 Completed NPI:[id number] (varivax)(chicken pox) 00:00:00 1 MMR 2001-05-22 Completed NPI:[id number] 00:00:00 1 Pneumococcal 13 2001-05-22 Completed NPI:[id number] 1878 Conjugate, PCV13 00:00:00 1 (Prevnar 13) Varicella 2001-05-22 Completed NPI:[id number] (varivax)(chicken pox) 00:00:00 1 MMR 2001-05-22 Completed NPI:[id number] 00:00:00 1 Pneumococcal 13 2001-05-22 Completed NPI:[id number] 1878 Conjugate, PCV13 00:00:00 1 (Prevnar 13) Varicella 2001-05-22 Completed NPI:[id number] (varivax)(chicken pox) 00:00:00 1 MMR 2001-05-22 Completed NPI:[id number] 00:00:00 1 Pneumococcal 13 2001-05-22 Completed NPI:98088 1878 Conjugate, PCV13 00:00:00 1 (Prevnar 13) Varicella 2001-05-22 Completed NPI:[id number] (varivax)(chicken pox) 00:00:00 1 MMR 2001-05-22 Completed NPI:[id number] 00:00:00 1 Pneumococcal 13 2001-05-22 Completed NPI:[id number] 1878 Conjugate, PCV13 00:00:00 1 (Prevnar 13) Varicella 2001-05-22 Completed NPI:[id number] (varivax)(chicken pox) 00:00:00 1 MMR 2001-05-22 Completed NPI:[id number] 00:00:00 1 Pneumococcal 13 2001-05-22 Completed NPI:[id number] 1878 Conjugate, PCV13 00:00:00 1 (Prevnar 13) Varicella 2001-05-22 Completed NPI:[id number] (varivax)(chicken pox) 00:00:00 1 MMR 2001-05-22 Completed NPI:[id number] 00:00:00 1 Pneumococcal 13 2001-05-22 Completed NPI:[id number] 1878 Conjugate, PCV13 00:00:00 1 (Prevnar 13) Varicella 2001-05-22 Completed NPI:[id number] (varivax)(chicken pox) 00:00:00 1 MMR 2001-05-22 Completed NPI:[id number] 00:00:00 1 Pneumococcal 13 2001-05-22 Completed NPI:96895 1878 Conjugate, PCV13 00:00:00 1 (Prevnar 13) Varicella 2001-05-22 Completed NPI:[id number] (varivax)(chicken pox) 00:00:00 1 MMR 2001-05-22 Completed NPI:[id number] 00:00:00 1 MMR 2001-05-22 Completed NPI:[id number] 00:00:00 1 Pneumococcal 13 2001-05-22 Completed NPI:[id number] 1878 Conjugate, PCV13 00:00:00 1 (Prevnar 13) Pneumococcal 13 2001-05-22 Completed NPI:36383 1878 Conjugate, PCV13 00:00:00 1 (Prevnar 13) Varicella 2001-05-22 Completed NPI:[id number] (varivax)(chicken pox) 00:00:00 1 Varicella 2001-05-22 Completed NPI:[id number] (varivax)(chicken pox) 00:00:00 1 MMR 2001-05-22 Completed NPI:[id number] 00:00:00 1 Pneumococcal 13 2001-05-22 Completed NPI:74090 1878 Conjugate, PCV13 00:00:00 1 (Prevnar 13) Varicella 2001-05-22 Completed NPI:[id number] (varivax)(chicken pox) 00:00:00 1 MMR 2001-05-22 Completed NPI:[id number] 00:00:00 1 Pneumococcal 13 2001-05-22 Completed NPI:[id number] 1878 Conjugate, PCV13 00:00:00 1 (Prevnar 13) Varicella 2001-05-22 Completed NPI:[id number] (varivax)(chicken pox) 00:00:00 1 MMR 2001-05-22 Completed NPI:[id number] 00:00:00 1 Pneumococcal 13 2001-05-22 Completed NPI:[id number] 1878 Conjugate, PCV13 00:00:00 1 (Prevnar 13) Pneumococcal 13 2000 Completed NPI:[id number] 1878 Conjugate, PCV13 00:00:00 1 (Prevnar 13) DTAP 2000 Completed NPI:[id number] 00:00:00 1 Pneumococcal 13 2000 Completed NPI:07582 1878 Conjugate, PCV13 00:00:00 1 (Prevnar 13) DTAP 2000 Completed NPI:[id number] 00:00:00 1 Pneumococcal 13 2000 Completed NPI:89086 1878 Conjugate, PCV13 00:00:00 1 (Prevnar 13) DTAP 2000 Completed NPI:[id number] 00:00:00 1 DTAP 2000 Completed NPI:[id number] 00:00:00 1 Pneumococcal 13 2000 Completed NPI:34701 1878 Conjugate, PCV13 00:00:00 1 (Prevnar 13) DTAP 2000 Completed NPI:[id number] 00:00:00 1 Pneumococcal 13 2000 Completed NPI:[id number] 1878 Conjugate, PCV13 00:00:00 1 (Prevnar 13) DTAP 2000 Completed NPI:[id number] 00:00:00 1 Pneumococcal 13 2000 Completed NPI:51083 1878 Conjugate, PCV13 00:00:00 1 (Prevnar 13) Pneumococcal 13 2000 Completed NPI:[id number] 1878 Conjugate, PCV13 00:00:00 1 (Prevnar 13) DTAP 2000 Completed NPI:[id number] 00:00:00 1 Pneumococcal 13 2000 Completed NPI:79336 1878 Conjugate, PCV13 00:00:00 1 (Prevnar 13) DTAP 2000 Completed NPI:[id number] 00:00:00 1 DTAP 2000 Completed NPI:[id number] 00:00:00 1 Pneumococcal 13 2000 Completed NPI:04234 1878 Conjugate, PCV13 00:00:00 1 (Prevnar 13) DTAP 2000 Completed NPI:[id number] 00:00:00 1 Pneumococcal 13 2000 Completed NPI:[id number] 1878 Conjugate, PCV13 00:00:00 1 (Prevnar 13) DTAP 2000 Completed NPI:[id number] 00:00:00 1 Pneumococcal 13 2000 Completed NPI:[id number] 1878 Conjugate, PCV13 00:00:00 1 (Prevnar 13) DTAP 2000 Completed NPI:[id number] 00:00:00 1 Pneumococcal 13 2000 Completed NPI:[id number] 1878 Conjugate, PCV13 00:00:00 1 (Prevnar 13) DTAP 2000 Completed NPI:[id number] 00:00:00 1 Pneumococcal 13 2000 Completed NPI:[id number] 1878 Conjugate, PCV13 00:00:00 1 (Prevnar 13) Pneumococcal 13 2000 Completed NPI:[id number] 1878 Conjugate, PCV13 00:00:00 1 (Prevnar 13) DTAP 2000 Completed NPI:[id number] 00:00:00 1 Pneumococcal 13 2000 Completed NPI:11955 1878 Conjugate, PCV13 00:00:00 1 (Prevnar 13) DTAP 2000 Completed NPI:[id number] 00:00:00 1 Pneumococcal 13 2000 Completed NPI:73780 1878 Conjugate, PCV13 00:00:00 1 (Prevnar 13) DTAP 2000 Completed NPI:[id number] 00:00:00 1 Pneumococcal 13 2000 Completed NPI:[id number] 1878 Conjugate, PCV13 00:00:00 1 (Prevnar 13) DTAP 2000 Completed NPI:[id number] 00:00:00 1 Pneumococcal 13 2000 Completed NPI:57869 1878 Conjugate, PCV13 00:00:00 1 (Prevnar 13) DTAP 2000 Completed NPI:[id number] 00:00:00 1 Pneumococcal 13 2000 Completed NPI:90972 1878 Conjugate, PCV13 00:00:00 1 (Prevnar 13) DTAP 2000 Completed NPI:[id number] 00:00:00 1 DTAP 2000 Completed NPI:[id number] 00:00:00 1 Pneumococcal 13 2000 Completed NPI:70326 1878 Conjugate, PCV13 00:00:00 1 (Prevnar 13) DTAP 2000 Completed NPI:[id number] 00:00:00 1 Pneumococcal 13 2000 Completed NPI:71966 1878 Conjugate, PCV13 00:00:00 1 (Prevnar 13) DTAP 2000 Completed NPI:[id number] 00:00:00 1 Pneumococcal 13 2000 Completed NPI:35251 1878 Conjugate, PCV13 00:00:00 1 (Prevnar 13) DTAP 2000 Completed NPI:[id number] 00:00:00 1 Pneumococcal 13 2000 Completed NPI:31439 1878 Conjugate, PCV13 00:00:00 1 (Prevnar 13) DTAP 2000 Completed NPI:[id number] 00:00:00 1 Pneumococcal 13 2000 Completed NPI:[id number] 1878 Conjugate, PCV13 00:00:00 1 (Prevnar 13) Pneumococcal 13 2000 Completed NPI:[id number] 1878 Conjugate, PCV13 00:00:00 1 (Prevnar 13) DTAP 2000 Completed NPI:[id number] 00:00:00 1 Pneumococcal 13 2000 Completed NPI:89962 1878 Conjugate, PCV13 00:00:00 1 (Prevnar 13) DTAP 2000 Completed NPI:[id number] 00:00:00 1 Pneumococcal 13 2000 Completed NPI:[id number] 1878 Conjugate, PCV13 00:00:00 1 (Prevnar 13) DTAP 2000 Completed NPI:[id number] 00:00:00 1 Pneumococcal 13 2000 Completed NPI:[id number] 1878 Conjugate, PCV13 00:00:00 1 (Prevnar 13) DTAP 2000 Completed NPI:[id number] 00:00:00 1 HIB 3 Dose Schedule 2000 Completed NPI:1 [id number] 00:00:00 1 Hep B, Adol or Pedi 2000 Completed NPI:1 [id number] Dosage 00:00:00 1 Pneumococcal 13 2000 Completed NPI:[id number] 1878 Conjugate, PCV13 00:00:00 1 (Prevnar 13) Polio (IPV/OPV) 2000 Completed NPI:[id number] 1878 00:00:00 1 DTAP 2000 Completed NPI:[id number] 00:00:00 1 HIB 3 Dose Schedule 2000 Completed NPI:1 [id number] 00:00:00 1 Hep B, Adol or Pedi 2000 Completed NPI:1 [id number] Dosage 00:00:00 1 Pneumococcal 13 2000 Completed NPI:[id number] 1878 Conjugate, PCV13 00:00:00 1 (Prevnar 13) Polio (IPV/OPV) 2000 Completed NPI:[id number] 1878 00:00:00 1 DTAP 2000 Completed NPI:[id number] 00:00:00 1 HIB 3 Dose Schedule 2000 Completed NPI:1 [id number] 00:00:00 1 Hep B, Adol or Pedi 2000 Completed NPI:1 [id number] Dosage 00:00:00 1 Pneumococcal 13 2000 Completed NPI:[id number] 1878 Conjugate, PCV13 00:00:00 1 (Prevnar 13) DTAP 2000 Completed NPI:[id number] 00:00:00 1 Polio (IPV/OPV) 2000 Completed NPI:[id number] 1878 00:00:00 1 DTAP 2000 Completed NPI:[id number] 00:00:00 1 HIB 3 Dose Schedule 2000 Completed NPI:1 [id number] 00:00:00 1 Hep B, Adol or Pedi 2000 Completed NPI:1 [id number] Dosage 00:00:00 1 Pneumococcal 13 2000 Completed NPI:[id number] 1878 Conjugate, PCV13 00:00:00 1 (Prevnar 13) HIB 3 Dose Schedule 2000 Completed NPI:1 [id number] 00:00:00 1 Polio (IPV/OPV) 2000 Completed NPI:[id number] 1878 00:00:00 1 Hep B, Adol or Pedi 2000 Completed NPI:1 [id number] Dosage 00:00:00 1 DTAP 2000 Completed NPI:[id number] 00:00:00 1 HIB 3 Dose Schedule 2000 Completed NPI:1 [id number] 00:00:00 1 Hep B, Adol or Pedi 2000 Completed NPI:1 [id number] Dosage 00:00:00 1 Pneumococcal 13 2000 Completed NPI:[id number] 1878 Conjugate, PCV13 00:00:00 1 (Prevnar 13) Polio (IPV/OPV) 2000 Completed NPI:[id number] 1878 00:00:00 1 DTAP 2000 Completed NPI:[id number] 00:00:00 1 HIB 3 Dose Schedule 2000 Completed NPI:1 [id number] 00:00:00 1 Hep B, Adol or Pedi 2000 Completed NPI:1 [id number] Dosage 00:00:00 1 Pneumococcal 13 2000 Completed NPI:[id number] 1878 Conjugate, PCV13 00:00:00 1 (Prevnar 13) Pneumococcal 13 2000 Completed NPI:[id number] 1878 Conjugate, PCV13 00:00:00 1 (Prevnar 13) Polio (IPV/OPV) 2000 Completed NPI:[id number] 1878 00:00:00 1 Polio (IPV/OPV) 2000 Completed NPI:[id number] 1878 00:00:00 1 DTAP 2000 Completed NPI:[id number] 00:00:00 1 HIB 3 Dose Schedule 2000 Completed NPI:1 [id number] 00:00:00 1 Hep B, Adol or Pedi 2000 Completed NPI:1 [id number] Dosage 00:00:00 1 Pneumococcal 13 2000 Completed NPI:[id number] 1878 Conjugate, PCV13 00:00:00 1 (Prevnar 13) Polio (IPV/OPV) 2000 Completed NPI:[id number] 1878 00:00:00 1 DTAP 2000 Completed NPI:[id number] 00:00:00 1 DTAP 2000 Completed NPI:[id number] 00:00:00 1 HIB 3 Dose Schedule 2000 Completed NPI:1 [id number] 00:00:00 1 Hep B, Adol or Pedi 2000 Completed NPI:1 [id number] Dosage 00:00:00 1 Pneumococcal 13 2000 Completed NPI:[id number] 1878 Conjugate, PCV13 00:00:00 1 (Prevnar 13) Polio (IPV/OPV) 2000 Completed NPI:[id number] 1878 00:00:00 1 DTAP 2000 Completed NPI:[id number] 00:00:00 1 HIB 3 Dose Schedule 2000 Completed NPI:1 [id number] 00:00:00 1 HIB 3 Dose Schedule 2000 Completed NPI:1 [id number] 00:00:00 1 Hep B, Adol or Pedi 2000 Completed NPI:1 [id number] Dosage 00:00:00 1 Pneumococcal 13 2000 Completed NPI:[id number] 1878 Conjugate, PCV13 00:00:00 1 (Prevnar 13) Polio (IPV/OPV) 2000 Completed NPI:[id number] 1878 00:00:00 1 DTAP 2000 Completed NPI:[id number] 00:00:00 1 HIB 3 Dose Schedule 2000 Completed NPI:1 [id number] 00:00:00 1 Hep B, Adol or Pedi 2000 Completed NPI:1 [id number] Dosage 00:00:00 1 Hep B, Adol or Pedi 2000 Completed NPI:1 [id number] Dosage 00:00:00 1 Pneumococcal 13 2000 Completed NPI:[id number] 1878 Conjugate, PCV13 00:00:00 1 (Prevnar 13) Polio (IPV/OPV) 2000 Completed NPI:[id number] 1878 00:00:00 1 DTAP 2000 Completed NPI:[id number] 00:00:00 1 HIB 3 Dose Schedule 2000 Completed NPI:1 [id number] 00:00:00 1 Hep B, Adol or Pedi 2000 Completed NPI:1 [id number] Dosage 00:00:00 1 Pneumococcal 13 2000 Completed NPI:[id number] 1878 Conjugate, PCV13 00:00:00 1 (Prevnar 13) Polio (IPV/OPV) 2000 Completed NPI:[id number] 1878 00:00:00 1 DTAP 2000 Completed NPI:[id number] 00:00:00 1 HIB 3 Dose Schedule 2000 Completed NPI:1 [id number] 00:00:00 1 Hep B, Adol or Pedi 2000 Completed NPI:1 [id number] Dosage 00:00:00 1 Pneumococcal 13 2000 Completed NPI:[id number] 1878 Conjugate, PCV13 00:00:00 1 (Prevnar 13) Pneumococcal 13 2000 Completed NPI:[id number] 1878 Conjugate, PCV13 00:00:00 1 (Prevnar 13) Polio (IPV/OPV) 2000 Completed NPI:[id number] 1878 00:00:00 1 DTAP 2000 Completed NPI:[id number] 00:00:00 1 HIB 3 Dose Schedule 2000 Completed NPI:1 [id number] 00:00:00 1 Hep B, Adol or Pedi 2000 Completed NPI:1 [id number] Dosage 00:00:00 1 Polio (IPV/OPV) 2000 Completed NPI:58484 1878 00:00:00 1 Pneumococcal 13 2000 Completed NPI:02156 1878 Conjugate, PCV13 00:00:00 1 (Prevnar 13) Polio (IPV/OPV) 2000 Completed NPI:14221 1878 00:00:00 1 DTAP 2000 Completed NPI:[id number] 00:00:00 1 HIB 3 Dose Schedule 2000 Completed NPI:1 [id number] 00:00:00 1 Hep B, Adol or Pedi 2000 Completed NPI:1 [id number] Dosage 00:00:00 1 Pneumococcal 13 2000 Completed NPI:29866 1878 Conjugate, PCV13 00:00:00 1 (Prevnar 13) Polio (IPV/OPV) 2000 Completed NPI:65690 1878 00:00:00 1 DTAP 2000 Completed NPI:[id number] 00:00:00 1 HIB 3 Dose Schedule 2000 Completed NPI:1 [id number] 00:00:00 1 Hep B, Adol or Pedi 2000 Completed NPI:1 [id number] Dosage 00:00:00 1 Pneumococcal 13 2000 Completed NPI:19818 1878 Conjugate, PCV13 00:00:00 1 (Prevnar 13) Polio (IPV/OPV) 2000 Completed NPI:55104 1878 00:00:00 1 DTAP 2000 Completed NPI:[id number] 00:00:00 1 HIB 3 Dose Schedule 2000 Completed NPI:1 [id number] 00:00:00 1 Hep B, Adol or Pedi 2000 Completed NPI:1 [id number] Dosage 00:00:00 1 Pneumococcal 13 2000 Completed NPI:85628 1878 Conjugate, PCV13 00:00:00 1 (Prevnar 13) Polio (IPV/OPV) 2000 Completed NPI:97593 1878 00:00:00 1 DTAP 2000 Completed NPI:[id number] 00:00:00 1 HIB 3 Dose Schedule 2000 Completed NPI:1 [id number] 00:00:00 1 Hep B, Adol or Pedi 2000 Completed NPI:1 [id number] Dosage 00:00:00 1 Pneumococcal 13 2000 Completed NPI:56088 1878 Conjugate, PCV13 00:00:00 1 (Prevnar 13) Polio (IPV/OPV) 2000 Completed NPI:44404 1878 00:00:00 1 DTAP 2000 Completed NPI:[id number] 00:00:00 1 DTAP 2000 Completed NPI:[id number] 00:00:00 1 HIB 3 Dose Schedule 2000 Completed NPI:1 [id number] 00:00:00 1 Hep B, Adol or Pedi 2000 Completed NPI:1 [id number] Dosage 00:00:00 1 Pneumococcal 13 2000 Completed NPI:86029 1878 Conjugate, PCV13 00:00:00 1 (Prevnar 13) Polio (IPV/OPV) 2000 Completed NPI:51206 1878 00:00:00 1 DTAP 2000 Completed NPI:[id number] 00:00:00 1 HIB 3 Dose Schedule 2000 Completed NPI:1 [id number] 00:00:00 1 HIB 3 Dose Schedule 2000 Completed NPI:1 [id number] 00:00:00 1 Hep B, Adol or Pedi 2000 Completed NPI:1 [id number] Dosage 00:00:00 1 Pneumococcal 13 2000 Completed NPI:84237 1878 Conjugate, PCV13 00:00:00 1 (Prevnar 13) Polio (IPV/OPV) 2000 Completed NPI:22182 1878 00:00:00 1 DTAP 2000 Completed NPI:[id number] 00:00:00 1 HIB 3 Dose Schedule 2000 Completed NPI:1 [id number] 00:00:00 1 Hep B, Adol or Pedi 2000 Completed NPI:1 [id number] Dosage 00:00:00 1 Pneumococcal 13 2000 Completed NPI:14397 1878 Conjugate, PCV13 00:00:00 1 (Prevnar 13) Hep B, Adol or Pedi 2000 Completed NPI:1 [id number] Dosage 00:00:00 1 Polio (IPV/OPV) 2000 Completed NPI:57537 1878 00:00:00 1 DTAP 2000 Completed NPI:[id number] 00:00:00 1 HIB 3 Dose Schedule 2000 Completed NPI:1 [id number] 00:00:00 1 Hep B, Adol or Pedi 2000 Completed NPI:1 [id number] Dosage 00:00:00 1 Pneumococcal 13 2000 Completed NPI:17405 1878 Conjugate, PCV13 00:00:00 1 (Prevnar 13) Polio (IPV/OPV) 2000 Completed NPI:17520 1878 00:00:00 1 DTAP 2000 Completed NPI:[id number] 00:00:00 1 HIB 3 Dose Schedule 2000 Completed NPI:1 [id number] 00:00:00 1 Hep B, Adol or Pedi 2000 Completed NPI:1 [id number] Dosage 00:00:00 1 Pneumococcal 13 2000 Completed NPI:77767 1878 Conjugate, PCV13 00:00:00 1 (Prevnar 13) Pneumococcal 13 2000 Completed NPI:81644 1878 Conjugate, PCV13 00:00:00 1 (Prevnar 13) Polio (IPV/OPV) 2000 Completed NPI:57154 1878 00:00:00 1 DTAP 2000 Completed NPI:[id number] 00:00:00 1 HIB 3 Dose Schedule 2000 Completed NPI:1 [id number] 00:00:00 1 Hep B, Adol or Pedi 2000 Completed NPI:1 [id number] Dosage 00:00:00 1 Polio (IPV/OPV) 2000 Completed NPI:89700 1878 00:00:00 1 Pneumococcal 13 2000 Completed NPI:40840 1878 Conjugate, PCV13 00:00:00 1 (Prevnar 13) Polio (IPV/OPV) 2000 Completed NPI:32545 1878 00:00:00 1 DTAP 2000 Completed NPI:[id number] 00:00:00 1 HIB 3 Dose Schedule 2000 Completed NPI:1 [id number] 00:00:00 1 Hep B, Adol or Pedi 2000 Completed NPI:1 [id number] Dosage 00:00:00 1 Pneumococcal 13 2000 Completed NPI:90014 1878 Conjugate, PCV13 00:00:00 1 (Prevnar 13) Polio (IPV/OPV) 2000 Completed NPI:60343 1878 00:00:00 1 DTAP 2000 Completed NPI:[id number] 00:00:00 1 HIB 3 Dose Schedule 2000 Completed NPI:1 [id number] 00:00:00 1 Hep B, Adol or Pedi 2000 Completed NPI:1 [id number] Dosage 00:00:00 1 Pneumococcal 13 2000 Completed NPI:15059 1878 Conjugate, PCV13 00:00:00 1 (Prevnar 13) Polio (IPV/OPV) 2000 Completed NPI:13249 1878 00:00:00 1 DTAP 2000 Completed NPI:[id number] 00:00:00 1 HIB 3 Dose Schedule 2000 Completed NPI:1 [id number] 00:00:00 1 Hep B, Adol or Pedi 2000 Completed NPI:1 [id number] Dosage 00:00:00 1 Pneumococcal 13 2000 Completed NPI:20207 1878 Conjugate, PCV13 00:00:00 1 (Prevnar 13) Polio (IPV/OPV) 2000 Completed NPI:93498 1878 00:00:00 1 DTAP 2000 Completed NPI:[id number] 00:00:00 1 HIB 3 Dose Schedule 2000 Completed NPI:1 [id number] 00:00:00 1 Hep B, Adol or Pedi 2000 Completed NPI:1 [id number] Dosage 00:00:00 1 Pneumococcal 13 2000 Completed NPI:72921 1878 Conjugate, PCV13 00:00:00 1 (Prevnar 13) Polio (IPV/OPV) 2000 Completed NPI:93057 1878 00:00:00 1 DTAP 2000 Completed NPI:[id number] 00:00:00 1 HIB 3 Dose Schedule 2000 Completed NPI:1 [id number] 00:00:00 1 DTAP 2000 Completed NPI:[id number] 00:00:00 1 Hep B, Adol or Pedi 2000 Completed NPI:1 [id number] Dosage 00:00:00 1 Pneumococcal 13 2000 Completed NPI:54868 1878 Conjugate, PCV13 00:00:00 1 (Prevnar 13) Polio (IPV/OPV) 2000 Completed NPI:16213 1878 00:00:00 1 DTAP 2000 Completed NPI:[id number] 00:00:00 1 HIB 3 Dose Schedule 2000 Completed NPI:1 [id number] 00:00:00 1 Hep B, Adol or Pedi 2000 Completed NPI:1 [id number] Dosage 00:00:00 1 HIB 3 Dose Schedule 2000 Completed NPI:1 [id number] 00:00:00 1 Pneumococcal 13 2000 Completed NPI:33039 1878 Conjugate, PCV13 00:00:00 1 (Prevnar 13) Polio (IPV/OPV) 2000 Completed NPI:37465 1878 00:00:00 1 Hep B, Adol or Pedi 2000 Completed NPI:1 [id number] Dosage 00:00:00 1 DTAP 2000 Completed NPI:[id number] 00:00:00 1 HIB 3 Dose Schedule 2000 Completed NPI:1 [id number] 00:00:00 1 Hep B, Adol or Pedi 2000 Completed NPI:1 [id number] Dosage 00:00:00 1 Pneumococcal 13 2000 Completed NPI:48027 1878 Conjugate, PCV13 00:00:00 1 (Prevnar 13) Polio (IPV/OPV) 2000 Completed NPI:81081 1878 00:00:00 1 DTAP 2000 Completed NPI:[id number] 00:00:00 1 Pneumococcal 13 2000 Completed NPI:08819 1878 Conjugate, PCV13 00:00:00 1 (Prevnar 13) HIB 3 Dose Schedule 2000 Completed NPI:1 [id number] 00:00:00 1 Hep B, Adol or Pedi 2000 Completed NPI:1 [id number] Dosage 00:00:00 1 Pneumococcal 13 2000 Completed NPI:49717 1878 Conjugate, PCV13 00:00:00 1 (Prevnar 13) Polio (IPV/OPV) 2000 Completed NPI:31481 1878 00:00:00 1 Polio (IPV/OPV) 2000 Completed NPI:26150 1878 00:00:00 1 DTAP 2000 Completed NPI:[id number] 00:00:00 1 HIB 3 Dose Schedule 2000 Completed NPI:1 [id number] 00:00:00 1 Hep B, Adol or Pedi 2000 Completed NPI:1 [id number] Dosage 00:00:00 1 Pneumococcal 13 2000 Completed NPI:26895 1878 Conjugate, PCV13 00:00:00 1 (Prevnar 13) Polio (IPV/OPV) 2000 Completed NPI:99640 1878 00:00:00 1 DTAP 2000 Completed NPI:[id number] 00:00:00 1 DTAP 2000 Completed NPI:[id number] 00:00:00 1 HIB 3 Dose Schedule 2000 Completed NPI:1 [id number] 00:00:00 1 Hep B, Adol or Pedi 2000 Completed NPI:1 [id number] Dosage 00:00:00 1 Pneumococcal 13 2000 Completed NPI:25283 1878 Conjugate, PCV13 00:00:00 1 (Prevnar 13) Polio (IPV/OPV) 2000 Completed NPI:74702 1878 00:00:00 1 HIB 3 Dose Schedule 2000 Completed NPI:1 [id number] 00:00:00 1 DTAP 2000 Completed NPI:[id number] 00:00:00 1 HIB 3 Dose Schedule 2000 Completed NPI:1 [id number] 00:00:00 1 Hep B, Adol or Pedi 2000 Completed NPI:1 [id number] Dosage 00:00:00 1 Pneumococcal 13 2000 Completed NPI:94585 1878 Conjugate, PCV13 00:00:00 1 (Prevnar 13) Polio (IPV/OPV) 2000 Completed NPI:66354 1878 00:00:00 1 DTAP 2000 Completed NPI:[id number] 00:00:00 1 HIB 3 Dose Schedule 2000 Completed NPI:1 [id number] 00:00:00 1 Hep B, Adol or Pedi 2000 Completed NPI:1 [id number] Dosage 00:00:00 1 Hep B, Adol or Pedi 2000 Completed NPI:1 [id number] Dosage 00:00:00 1 Pneumococcal 13 2000 Completed NPI:49763 1878 Conjugate, PCV13 00:00:00 1 (Prevnar 13) Polio (IPV/OPV) 2000 Completed NPI:63229 1878 00:00:00 1 DTAP 2000 Completed NPI:[id number] 00:00:00 1 HIB 3 Dose Schedule 2000 Completed NPI:1 [id number] 00:00:00 1 Hep B, Adol or Pedi 2000 Completed NPI:1 [id number] Dosage 00:00:00 1 Pneumococcal 13 2000 Completed NPI:13640 1878 Conjugate, PCV13 00:00:00 1 (Prevnar 13) Polio (IPV/OPV) 2000 Completed NPI:90307 1878 00:00:00 1 DTAP 2000 Completed NPI:[id number] 00:00:00 1 HIB 3 Dose Schedule 2000 Completed NPI:1 [id number] 00:00:00 1 Pneumococcal 13 2000 Completed NPI:98671 1878 Conjugate, PCV13 00:00:00 1 (Prevnar 13) Hep B, Adol or Pedi 2000 Completed NPI:1 [id number] Dosage 00:00:00 1 Pneumococcal 13 2000 Completed NPI:66585 1878 Conjugate, PCV13 00:00:00 1 (Prevnar 13) Polio (IPV/OPV) 2000 Completed NPI:67781 1878 00:00:00 1 DTAP 2000 Completed NPI:[id number] 00:00:00 1 HIB 3 Dose Schedule 2000 Completed NPI:1 [id number] 00:00:00 1 Polio (IPV/OPV) 2000 Completed NPI:15577 1878 00:00:00 1 Hep B, Adol or Pedi 2000 Completed NPI:1 [id number] Dosage 00:00:00 1 Pneumococcal 13 2000 Completed NPI:37190 1878 Conjugate, PCV13 00:00:00 1 (Prevnar 13) Polio (IPV/OPV) 2000 Completed NPI:66296 1878 00:00:00 1 DTAP 2000 Completed NPI:[id number] 00:00:00 1 HIB 3 Dose Schedule 2000 Completed NPI:1 [id number] 00:00:00 1 Hep B, Adol or Pedi 2000 Completed NPI:1 [id number] Dosage 00:00:00 1 Pneumococcal 13 2000 Completed NPI:36867 1878 Conjugate, PCV13 00:00:00 1 (Prevnar 13) Polio (IPV/OPV) 2000 Completed NPI:22068 1878 00:00:00 1 DTAP 2000 Completed NPI:[id number] 00:00:00 1 HIB 3 Dose Schedule 2000 Completed NPI:1 [id number] 00:00:00 1 Hep B, Adol or Pedi 2000 Completed NPI:1 [id number] Dosage 00:00:00 1 Pneumococcal 13 2000 Completed NPI:50317 1878 Conjugate, PCV13 00:00:00 1 (Prevnar 13) Polio (IPV/OPV) 2000 Completed NPI:32915 1878 00:00:00 1 DTAP 2000 Completed NPI:[id number] 00:00:00 1 HIB 3 Dose Schedule 2000 Completed NPI:1 [id number] 00:00:00 1 Hep B, Adol or Pedi 2000 Completed NPI:1 [id number] Dosage 00:00:00 1 Pneumococcal 13 2000 Completed NPI:54614 1878 Conjugate, PCV13 00:00:00 1 (Prevnar 13) Polio (IPV/OPV) 2000 Completed NPI:74752 1878 00:00:00 1 DTAP 2000 Completed NPI:[id number] 00:00:00 1 HIB 3 Dose Schedule 2000 Completed NPI:1 [id number] 00:00:00 1 Hep B, Adol or Pedi 2000 Completed NPI:1 [id number] Dosage 00:00:00 1 Pneumococcal 13 2000 Completed NPI:35612 1878 Conjugate, PCV13 00:00:00 1 (Prevnar 13) Polio (IPV/OPV) 2000 Completed NPI:34944 1878 00:00:00 1 DTAP 2000 Completed NPI:[id number] 00:00:00 1 DTAP 2000 Completed NPI:[id number] 00:00:00 1 HIB 3 Dose Schedule 2000 Completed NPI:1 [id number] 00:00:00 1 Hep B, Adol or Pedi 2000 Completed NPI:1 [id number] Dosage 00:00:00 1 Pneumococcal 13 2000 Completed NPI:06701 1878 Conjugate, PCV13 00:00:00 1 (Prevnar 13) Polio (IPV/OPV) 2000 Completed NPI:55044 1878 00:00:00 1 HIB 3 Dose Schedule 2000 Completed NPI:1 [id number] 00:00:00 1 DTAP 2000 Completed NPI:[id number] 00:00:00 1 HIB 3 Dose Schedule 2000 Completed NPI:1 [id number] 00:00:00 1 Hep B, Adol or Pedi 2000 Completed NPI:1 [id number] Dosage 00:00:00 1 Pneumococcal 13 2000 Completed NPI:62854 1878 Conjugate, PCV13 00:00:00 1 (Prevnar 13) Polio (IPV/OPV) 2000 Completed NPI:30950 1878 00:00:00 1 DTAP 2000 Completed NPI:[id number] 00:00:00 1 HIB 3 Dose Schedule 2000 Completed NPI:1 [id number] 00:00:00 1 Hep B, Adol or Pedi 2000 Completed NPI:1 [id number] Dosage 00:00:00 1 Hep B, Adol or Pedi 2000 Completed NPI:1 [id number] Dosage 00:00:00 1 Pneumococcal 13 2000 Completed NPI:85092 1878 Conjugate, PCV13 00:00:00 1 (Prevnar 13) Polio (IPV/OPV) 2000 Completed NPI:70448 1878 00:00:00 1 DTAP 2000 Completed NPI:[id number] 00:00:00 1 HIB 3 Dose Schedule 2000 Completed NPI:1 [id number] 00:00:00 1 Hep B, Adol or Pedi 2000 Completed NPI:1 [id number] Dosage 00:00:00 1 Pneumococcal 13 2000 Completed NPI:61365 1878 Conjugate, PCV13 00:00:00 1 (Prevnar 13) Polio (IPV/OPV) 2000 Completed NPI:29471 1878 00:00:00 1 DTAP 2000 Completed NPI:[id number] 00:00:00 1 HIB 3 Dose Schedule 2000 Completed NPI:1 [id number] 00:00:00 1 Pneumococcal 13 2000 Completed NPI:83401 1878 Conjugate, PCV13 00:00:00 1 (Prevnar 13) Hep B, Adol or Pedi 2000 Completed NPI:1 [id number] Dosage 00:00:00 1 Pneumococcal 13 2000 Completed NPI:63684 1878 Conjugate, PCV13 00:00:00 1 (Prevnar 13) Polio (IPV/OPV) 2000 Completed NPI:16495 1878 00:00:00 1 DTAP 2000 Completed NPI:[id number] 00:00:00 1 HIB 3 Dose Schedule 2000 Completed NPI:1 [id number] 00:00:00 1 Polio (IPV/OPV) 2000 Completed NPI:38538 1878 00:00:00 1 Hep B, Adol or Pedi 2000 Completed NPI:1 [id number] Dosage 00:00:00 1 Pneumococcal 13 2000 Completed NPI:01655 1878 Conjugate, PCV13 00:00:00 1 (Prevnar 13) Polio (IPV/OPV) 2000 Completed NPI:55596 1878 00:00:00 1 DTAP 2000 Completed NPI:[id number] 00:00:00 1 HIB 3 Dose Schedule 2000 Completed NPI:1 [id number] 00:00:00 1 Hep B, Adol or Pedi 2000 Completed NPI:1 [id number] Dosage 00:00:00 1 Pneumococcal 13 2000 Completed NPI:54659 1878 Conjugate, PCV13 00:00:00 1 (Prevnar 13) Polio (IPV/OPV) 2000 Completed NPI:90988 1878 00:00:00 1 DTAP 2000 Completed NPI:[id number] 00:00:00 1 HIB 3 Dose Schedule 2000 Completed NPI:1 [id number] 00:00:00 1 Hep B, Adol or Pedi 2000 Completed NPI:1 [id number] Dosage 00:00:00 1 Pneumococcal 13 2000 Completed NPI:18600 1878 Conjugate, PCV13 00:00:00 1 (Prevnar 13) Polio (IPV/OPV) 2000 Completed NPI:35346 1878 00:00:00 1 DTAP 2000 Completed NPI:[id number] 00:00:00 1 Hep B, Adol or Pedi 2000 Completed NPI:1 [id number] Dosage 00:00:00 1 Hep B, Adol or Pedi 2000 Completed NPI:1 [id number] Dosage 00:00:00 1 Hep B, Adol or Pedi 2000 Completed NPI:1 [id number] Dosage 00:00:00 1 Hep B, Adol or Pedi 2000 Completed NPI:1 [id number] Dosage 00:00:00 1 Hep B, Adol or Pedi 2000 Completed NPI:1 [id number] Dosage 00:00:00 1 Hep B, Adol or Pedi 2000 Completed NPI:1 [id number] Dosage 00:00:00 1 Hep B, Adol or Pedi 2000 Completed NPI:1 [id number] Dosage 00:00:00 1 Hep B, Adol or Pedi 2000 Completed NPI:1 [id number] Dosage 00:00:00 1 Hep B, Adol or Pedi 2000 Completed NPI:1 [id number] Dosage 00:00:00 1 Hep B, Adol or Pedi 2000 Completed NPI:1 [id number] Dosage 00:00:00 1 Hep B, Adol or Pedi 2000 Completed NPI:1 [id number] Dosage 00:00:00 1 Hep B, Adol or Pedi 2000 Completed NPI:1 [id number] Dosage 00:00:00 1 Hep B, Adol or Pedi 2000 Completed NPI:1 [id number] Dosage 00:00:00 1 Hep B, Adol or Pedi 2000 Completed NPI:1 [id number] Dosage 00:00:00 1 Hep B, Adol or Pedi 2000 Completed NPI:1 [id number] Dosage 00:00:00 1 Hep B, Adol or Pedi 2000 Completed NPI:1 [id number] Dosage 00:00:00 1 Hep B, Adol or Pedi 2000 Completed NPI:1 [id number] Dosage 00:00:00 1 Hep B, Adol or Pedi 2000 Completed NPI:1 [id number] Dosage 00:00:00 1 Hep B, Adol or Pedi 2000 Completed NPI:1 [id number] Dosage 00:00:00 1 Hep B, Adol or Pedi 2000 Completed NPI:1 [id number] Dosage 00:00:00 1 Hep B, Adol or Pedi 2000 Completed NPI:1 [id number] Dosage 00:00:00 1 Hep B, Adol or Pedi 2000 Completed NPI:1 [id number] Dosage 00:00:00 1 Hep B, Adol or Pedi 2000 Completed NPI:1 [id number] Dosage 00:00:00 1 Hep B, Adol or Pedi 2000 Completed NPI:1 [id number] Dosage 00:00:00 1 Hep B, Adol or Pedi 2000 Completed NPI:1 [id number] Dosage 00:00:00 1 Hep B, Adol or Pedi 2000 Completed NPI:1 [id number] Dosage 00:00:00 1 Hep B, Adol or Pedi 2000 Completed NPI:1 [id number] Dosage 00:00:00 1 Hep B, Adol or Pedi 2000 Completed NPI:1 [id number] Dosage 00:00:00 1 Vital Signs Vital Name Observation Time Observation Value Comments Source Systolic blood pressure 2021-06-07 17:04:00 123 mm[Hg] Diastolic blood 2021-06-07 17:04:00 99 mm[Hg] NPI:1 [id number] pressure Heart rate 2021-06-07 17:04:00 110 /min NPI:1831 [id number] Body temperature 2021-06-07 17:04:00 36.56 Mayra Respiratory rate 2021-06-07 17:04:00 22 /min Body weight 2021-06-07 17:04:00 96.525 kg NPI:1831 [id number] Oxygen saturation in 2021-06-07 17:04:00 100 /min Arterial blood by Pulse oximetry Systolic blood pressure 2020-01-30 16:10:00 113 mm[Hg] Diastolic blood 2020-01-30 16:10:00 75 mm[Hg] NPI:1 [id number] pressure Heart rate 2020-01-30 16:10:00 101 /min NPI:1831 [id number] Body temperature 2020-01-30 16:10:00 36.72 Mayra Respiratory rate 2020-01-30 16:10:00 18 /min Body height 2020-01-30 16:10:00 152.4 cm NPI:1831 [id number] Body weight 2020-01-30 16:10:00 75.751 kg NPI:1831 024523 BMI 2020-01-30 16:10:00 32.61 kg/m2 NPI:1831 458835 Systolic blood pressure 2019-12-24 18:24:00 121 mm[Hg] Diastolic blood 2019-12-24 18:24:00 78 mm[Hg] NPI:1 [id number] pressure Heart rate 2019-12-24 18:24:00 96 /min NPI:1831 [id number] Body temperature 2019-12-24 18:24:00 37.33 Mayra Respiratory rate 2019-12-24 18:24:00 20 /min Body height 2019-12-24 18:24:00 152.4 cm NPI:1831 427602 Body weight 2019-12-24 18:24:00 72.031 kg NPI:1831 576158 BMI 2019-12-24 18:24:00 31.01 kg/m2 NPI:1831 795591 Systolic blood pressure 2019-08-04 19:27:00 115 mm[Hg] Diastolic blood 2019-08-04 19:27:00 79 mm[Hg] NPI:1 [id number] pressure Heart rate 2019-08-04 19:27:00 107 /min NPI:1831 803011 Body temperature 2019-08-04 19:27:00 36.72 Mayra Respiratory rate 2019-08-04 19:27:00 18 /min Body height 2019-08-04 19:27:00 152.4 cm NPI:1831 [id number] Body weight 2019-08-04 19:27:00 74.934 kg NPI:1831 889707 BMI 2019-08-04 19:27:00 32.26 kg/m2 NPI:1831 464139 Oxygen saturation in 2019-08-04 19:27:00 98 /min Arterial blood by Pulse oximetry Systolic blood pressure 2019-07-22 17:46:00 121 mm[Hg] Diastolic blood 2019-07-22 17:46:00 77 mm[Hg] NPI:1 [id number] pressure Heart rate 2019-07-22 17:46:00 102 /min NPI:1831 [id number] Body temperature 2019-07-22 17:46:00 36.67 Mayra Respiratory rate 2019-07-22 17:46:00 18 /min Body height 2019-07-22 17:46:00 152.4 cm NPI:1831 371538 Body weight 2019-07-22 17:46:00 75.116 kg NPI:1831 495501 BMI 2019-07-22 17:46:00 32.34 kg/m2 NPI:1831 847908 Oxygen saturation in 2019-07-22 17:46:00 98 /min Arterial blood by Pulse oximetry Systolic blood pressure 2018-12-05 14:37:00 105 mm[Hg] Diastolic blood 2018-12-05 14:37:00 71 mm[Hg] NPI:1 [id number] pressure Heart rate 2018-12-05 14:37:00 86 /min NPI:1831 462116 Body temperature 2018-12-05 14:37:00 36.78 Mayra Respiratory rate 2018-12-05 14:37:00 18 /min Body height 2018-12-05 14:37:00 152.4 cm NPI:1831 685445 Body weight 2018-12-05 14:37:00 73.029 kg NPI:1831 394012 BMI 2018-12-05 14:37:00 31.44 kg/m2 NPI:1831 243128 Procedures Procedure Date / Time Performed Performing Clinician Sourc e POCT TEST 2021-06-07 17:29:00 Leiva Oscar Deleon NPI:[id number] CONSENT/REFUSAL FOR 2021-06-07 17:01:44 Doctor Unassigned, No AP PROCESSOR I:[id number] DIAGNOSIS AND TREATMENT Name US PELVIS COMPLETE WITH 2020-01-07 18:50:52 Adum, Marie Teresa TRANSVAGINAL GC & CHLAMYDIA AMPLIFIED 2019-12-24 19:28:00 Adum, Marie L NPI :[id number] ASSAY TRICHOMONAS AMPLIFIED 2019-12-24 19:28:00 Adum, Marie L NPI:[id number] ASSAY CONSENT/REFUSAL FOR 2019-12-24 18:04:49 Doctor Unassigned, No AP PROCESSOR I:[id number] DIAGNOSIS AND TREATMENT Name ASSIGNMENT OF BENEFITS 2019-12-24 18:04:39 Doctor Unassigned, No Name POCT TEST 2019-12-24 00:00:00 Adum, Marie Teresa NPI:[id number] POCT TEST 2019-08-04 20:32:00 Jessi Chaudhary NPI:1831 [id number] POCT URINALYSIS 2019-08-04 20:00:00 Jessi Chaudhary NPI:[id number] POCT URINALYSIS 2019-07-22 00:00:00 Whitley Michel NPI:1 [id number] Maikol CONSENT/REFUSAL FOR 2018-12-05 14:25:52 Doctor Unassigned, No AP PROCESSOR I:[id number] DIAGNOSIS AND TREATMENT Name ASSIGNMENT OF BENEFITS 2018-12-05 14:25:36 Doctor Unassigned, No Name Encounters Start End Encounter Admission Attending Care Care Encounter Source Date/Time Date/Time Type Type Clinicians Facility Department ID 2021-06-07 2021-06-07 Emergency X [facility] ERT [id number] NPI:183 11:07:00 11:45:00 OSCAR [id number] 2021-06-07 2021-06-07 Emergency [facility] [id number] NPI:183 11:07:00 11:45:00 Oscar MORENO [id number] [place] [id number] [place] [id number] 2020-06-29 2020-06-29 [facility] [id number] NPI:183 00:00:00 00:00:00 Outreach Farshad [facility] [id number] [facility] [id number] [place] [id number] 2020-01-30 2020-01-30 Nurse Nurse, [facility] [id number] NPI:183 10:33:21 10:43:37 Visit [facility] Marie Brii Moreno [id number] [place] 4.2.7.2.686 [facility] [id number] [address] 2020-01-30 2020-01-30 Outpatient R [facility] [id number] NPI:183 10:30:00 10:30:00 [id number] 2020-01-30 2020-01-30 Outpatient R [facility] [id number] NPI:183 10:30:00 10:30:00 [id number] 2020-01-08 2020-01-08 [facility] [id number] NPI:183 00:00:00 00:00:00 Marie Brii [place] 350.1.13.10 [id number] [place] 4.2.7.2.686 [facility] [phone] [address] 2020-01-07 2020-01-07 [facility] 1.2.840.114 [id number] NPI:183 12:18:16 23:59:00 Encounter Marie Brii [place] 350.1.13.10 [id number] [place] 4.2.7.2.686 [place] [phone] 2020-01-07 2020-01-07 Outpatient [facility] [id number] -[id number] NPI:183 13:00:00 13:00:00 MARIE [id number] 2020-01-07 2020-01-07 Outpatient R [facility] [id number] NPI:183 00:00:00 00:00:00 MARIE [id number] 2019-12-26 2019-12-26 Telephone Adum, [facility] [id number] NPI:183 00:00:00 00:00:00 Marie Moreno 350.1.13.10 [id number] [place] 4.2.7.2.686 Professio [phone] [address] 2019-12-26 2019-12-26 Case Adum, [facility] 1.2.840.114 [id number] NPI:183 00:00:00 00:00:00 Management Marie Moreno 350.1.13.10 [id number] [place] 4.2.7.2.686 Professio [phone] [facility] 134 [facility] 2019-12-25 2019-12-25 Case Ad, [facility] 1.2.840.114 [id number] NPI:183 00:00:00 00:00:00 Management Marie Moreno 350.1.13.10 [id number] [place] 4.2.7.2.686 Professio [phone] [facility] 134 [facility] 2019-12-24 2019-12-24 Lead [place] 2, Adc Lab [facility] 1.2.840.114 [id number] NPI:183 14:33:27 14:52:25 Visit Marie Montanez 350.1.13.10 [id number] [place] 4.2.7.2.686 Professio [phone] [address] 2019-12-24 2019-12-24 Office Adum, [facility] 1.2.840.114 [id number] NPI:183 13:06:26 14:27:02 Visit Marie Moreno 350.1.13.10 [id number] [place] 4.2.7.2.686 Professio [phone] [facility] 134 [facility] 2019-12-24 2019-12-24 Outpatient R ADUM, [facility] [id number] -[id number] NPI:183 13:00:00 13:00:00 MARIE [id number] 2019-12-24 2019-12-24 Outpatient R ADUM, [facility] [id number] NPI:183 13:00:00 13:00:00 MARIE [id number] 1 2019-12-24 2019-12-24 Orders Doctor HIRAL 1.2.840.114 [id number] NPI:183 00:00:00 00:00:00 Only Unassigned, ELSA 350.1.13.10 [id number] [place] [facility] 4.2.7.2.686 [phone] [phone] 2019-12-01 Outpatient R [facility] [id number] NPI:183 13:00:00 13:00:00 MARIE [id number] 2019-12-01 2019-12-01 Outpatient R [facility] [id number] NPI:183 13:00:00 13:00:00 MARIE [id number] 1 2019-08-05 2019-08-05 [facility] [id number] NPI:183 00:00:00 00:00:00 [facility] 350.1.13.10 [id number] [place] 4.2.7.2.686 Professio [phone] nal [address] 2019-08-04 2019-08-04 Urgent Provider, [facility] 1.2.840.114 [id number] NPI:183 14:20:44 15:14:25 Care Shaina Wright [facility] 350.1.13.10 [id number] [place] 4.2.7.2.[phone] [facility] Office [address] 2019-08-04 2019-08-04 Outpatient [facility] [id number] NPI:183 13:00:00 13:00:00 [id number] 2019-08-04 2019-08-04 Outpatient R SHAINA WRIGHT [facility] [id number] NPI:183 13:00:00 13:00:00 [id number] 2019-07-22 2019-07-22 Urgent Provider, [facility] 1.2.840.114 [id number] NPI:183 12:40:47 13:52:16 Care Zack Quinn [facility] [id number] [id number] [place] 4.2.7.2.686 Professio [phone] nal [address] One 2019-07-22 2019-07-22 Telemedici Care, Provider 23 - Adult & Pedi Urgent [facility] [place] 1.2.840.114 [id number] NPI:183 11:43:16 12:03:16 ne Visit Zack Quinn [facility] 350.1.13.10 [id number] [place] 4.2.7.2.686 [facility] [phone] [address] ([facility]) 2019-07-22 2019-07-22 Outpatient R [facility] [id number] NPI:183 11:40:00 11:40:00 [id number] 2019-07-22 2019-07-22 Outpatient R QUINN [facility] [id number] NPI:183 11:40:00 11:40:00 BARNEYBEBETODEJON [id number] 2019-07-22 2019-07-22 Telephone Aruna Myers [facility] [place] 1.2.840.114 [id number] NPI:183 00:00:00 00:00:00 Silas Moreno 350.1.13.10 [id number] [place] 4.2.7.2.686 Professio [phone] [address] 2019-03-26 2019-03-26 Patient Glenroy [facility] [place] 1.2.840.114 [id number] NPI:183 00:00:00 00:00:00 [facility] 350.1.13.10 [id number] [facility] 4.2.7.2.686 [facility] [phone] [id number] 2018-12-06 2018-12-06 Telephone Ousmane [facility] 1.2.840.114 [id number] NPI:183 00:00:00 00:00:00 Cyndy Moreno 350.1.13.10 [id number] [place] 4.2.7.2.686 Professio [phone] [address] 2018-12-06 2018-12-06 Case Ousmane [facility] [id number] NPI:183 00:00:00 00:00:00 Management [facility] 350.1.13.10 [id number] Surgical 4.2.7.2.686 Specialti [phone] [address] 2018-12-05 2018-12-05 Office RADHA Romeo [id number] NPI:183 09:28:59 10:04:58 Visit Cyndy Moreno 350.1.13.10 [id number] [place] 4.2.7.2.686 Professio [phone] [address] 2018-12-05 2018-12-05 Orders Doctor HIRAL 1.2.840.114 [id number] NPI:183 00:00:00 00:00:00 Only Unassigned, ELSA 350.1.13.10 [id number] [place] [facility] 4.2.7.2.686 [phone] [id number] Results Test Description Test Time Test Comments Results Result Comments Source POCT TEST 2021-06-07 17:29:00 Test Item Value Reference Range Interpretation Comme nts POCT PREG (test code = 1605) negative On board controls acceptable with C Line (test code = 3574) present POCT PREG LOT # (test code = 3575) [id number] POCT PREG TEST DATE (test code = 3576) 05/09/2022 Lab Interpretation (test code = 85766-4) Normal NPI:[id number] PELVIS COMPLETE WITH [id number] 18:53:14HISTORY: Irregular cycles. TECHNIQUE: Both transabdominal and transvaginal pelvic ultrasound studieswere completed by the technologist. FINDINGS: Uterus is of normal size and shape, measures approximately 7.7 x3.7 x 4.9 cm in size with homogeneous echo texture of the myometrium.Endometrial echo complex is 3 mm. Minimal free fluid noted in encfze-az-bij. Right ovary is 3.6 x 4.0 x 2.3 cm (17.84 ml) and left ovary is 3.7 x 2.3 x1.2 cm (5.67 ml). Multiple follicles are seen in both ovaries and rightovary contains 1.9 x 1.6 cm size corpus luteum. CONCLUSIONS: Essentially normal study. [facility], Radiant Results Inft User - 01/07/2020 1:54 PM CDTHISTORY: Irregular cycles.TECHNIQUE: Both transabdominal and transvaginal pelvic ultrasound studieswere completed by the technologist.FINDINGS: Uterus is of normal size and shape, measures approximately 7.7 x3.7 x 4.9 cm in size with homogeneous echo texture of the myometrium.Endometrial echo complex is 3 mm. Minimal free fluid noted in xdmwpj-qh-jgg. Right ovary is 3.6 x 4.0 x 2.3 cm (17.84 ml) and left ovary is 3.7 x 2.3 x1.2 cm (5.67 ml). Multiple follicles are seen in both ovaries and rightovary contains 1.9 x 1.6 cm size corpus luteum.CONCLUSIONS: Essentially normal study.NPI:[id number] & CHLAMYDIA AMPLIFIED [id number] 20:09:00 Test Item Value Reference Range Interpretation Comments C. trachomatis Nucleic Positive Negative A Acid (test code = 06986-9) N. gonorrhoeae Nucleic Negative Negative Acid (test code = 46337-5) ANTONIETA (test code = ANTONIETA) Reliable results are dependent on adequate specimen collection. ? A positive result obtained from a patient after therapeutic treatment cannot be interpreted as indicating the presence of viable organisms. ?For patients on whom a false positive result may have adverse psychosocial impact, retesting is advised. Indeterminate: Unable to generate a valid test result on this specimen. ?Please submit a new specimen for repeat testing if clinically indicated. Chlamydia trachomatis/Neisseria gonorrhoeae nucleic acid amplification testing (NAAT) has not been validated for medico-legal specimens (sexual abuse in heather-pubertal and pre-pubertal children, sexual assault, and legal cases). ?Culture for Chlamydia trachomatis and/or Neisseria gonorrhoeae from clinically appropriate sites is the method of choice in these cases. ? Results from this testing should be interpreted in conjunction with other laboratory and clinical data available to the clinician.For females in general, a urine specimen is a second-line option because it is considered less sensitive than a cervical swab for Chlamydia trachomatis and/or Neisseria gonorrhoeae NAAT. Lab Interpretation Abnormal (test code = 92245-6) NPI:[id number] & CHLAMYDIA AMPLIFIED [id number] 20:09:00 Test Item Value Reference Range Interpretation Comments C. trachomatis Nucleic Positive Negative A Acid (test code = 05884-0) N. gonorrhoeae Nucleic Negative Negative Acid (test code = 49666-0) ANTONIETA (test code = ANTONIETA) Reliable results are dependent on adequate specimen collection. ? A positive result obtained from a patient after therapeutic treatment cannot be interpreted as indicating the presence of viable organisms. ?For patients on whom a false positive result may have adverse psychosocial impact, retesting is advised. Indeterminate: Unable to generate a valid test result on this specimen. ?Please submit a new specimen for repeat testing if clinically indicated. Chlamydia trachomatis/Neisseria gonorrhoeae nucleic acid amplification testing (NAAT) has not been validated for medico-legal specimens (sexual abuse in heather-pubertal and pre-pubertal children, sexual assault, and legal cases). ?Culture for Chlamydia trachomatis and/or Neisseria gonorrhoeae from clinically appropriate sites is the method of choice in these cases. ? Results from this testing should be interpreted in conjunction with other laboratory and clinical data available to the clinician.For females in general, a urine specimen is a second-line option because it is considered less sensitive than a cervical swab for Chlamydia trachomatis and/or Neisseria gonorrhoeae NAAT. Lab Interpretation Abnormal (test code = 26828-0) NPI:[id number] AMPLIFIED [id number] 19:49:00 Test Item Value Reference Range Interpretation Comments Trichomonas Nucleic Negative Negative Acid (test code = 27949-8) ANTONIETA (test code = ANTONIETA) Reliable results are dependent on adequate specimen collection. ? A positive result obtained from a patient after therapeutic treatment cannot be interpreted as indicating the presence of viable organisms. ?For patients on whom a false positive result may have adverse psychosocial impact, retesting is advised. Indeterminate: Unable to generate a valid test result on this specimen. ?Please submit a new specimen for repeat testing if clinically indicated. Trichomonas nucleic acid amplification testing (NAAT) has not been validated for medico-legal specimens (sexual abuse in heather-pubertal and pre-pubertal children, sexual assault, and legal cases). ?Wet mount with microscopic observation and culture for Trichomonas vaginalis from clinically appropriate sites are the methods of choice in these cases. Results from this testing should be interpreted in conjunction with other laboratory and clinical data available to the clinician. Lab Interpretation Normal (test code = 57797-8) NPI:[id number] AMPLIFIED [id number] 19:49:00 Test Item Value Reference Range Interpretation Comments Trichomonas Nucleic Negative Negative Acid (test code = 68408-5) ANTONIETA (test code = ANTONIETA) Reliable results are dependent on adequate specimen collection. ? A positive result obtained from a patient after therapeutic treatment cannot be interpreted as indicating the presence of viable organisms. ?For patients on whom a false positive result may have adverse psychosocial impact, retesting is advised. Indeterminate: Unable to generate a valid test result on this specimen. ?Please submit a new specimen for repeat testing if clinically indicated. Trichomonas nucleic acid amplification testing (NAAT) has not been validated for medico-legal specimens (sexual abuse in heather-pubertal and pre-pubertal children, sexual assault, and legal cases). ?Wet mount with microscopic observation and culture for Trichomonas vaginalis from clinically appropriate sites are the methods of choice in these cases. Results from this testing should be interpreted in conjunction with other laboratory and clinical data available to the clinician. Lab Interpretation Normal (test code = 29339-8) NPI:[id number] 19:09:00 Test Item Value Reference Range Interpretation Comments POCT PREG (test code = 1605) Negative On board controls acceptable with C Yes Line (test code = 3574) POCT PREG LOT # (test code = 3575) POCT PREG TEST DATE (test code = 3576) Lab Interpretation (test code = Normal 41360-8) NPI:[id number] 19:09:00 Test Item Value Reference Range Interpretation Comments POCT PREG (test code = 1605) Negative On board controls acceptable with C Yes Line (test code = 3574) POCT PREG LOT # (test code = 3575) POCT PREG TEST DATE (test code = 3576) Lab Interpretation (test code = Normal 48997-4) NPI:[id number] 20:35:00 Test Item Value Reference Range Interpretation Comments POCT PREG (test code = Negative 1605) On board controls Yes acceptable with C Line (test code = 3574) POCT PREG LOT # (test code = 3575) POCT PREG TEST DATE (test code = 3576) ANTONIETA (test code = ANTONIETA) accurate development and interpretation of all internal controls Lab Interpretation Normal (test code = 96115-9) NPI:[id number] URINALYSIS W SPECIFIC [id number] 20:00:00 Test Item Value Reference Range Interpretation Comments POCT U SP GRAV (test 1.025 mg/dl 1.005-1.025 code = 3255) POCT PH U (test code = 5 mg/dl 5-8 3254) POCT U LEUK EST (test trace Negative - code = 3263) Negative POCT U NIT (test code neg Negative - = 3262) Negative POCT U PROT (test code neg Negative - = 3259) Negative POCT U GLU (test code norm Negative - = 3256) Negative POCT U KETONE (test neg Negative - code = 3258) Negative POCT U UROBILI (test norm 0.2-1 code = 3260) POCT U BILI (test code neg Negative - = 3261) Negative POCT U BLD (test code neg Negative - = 3257) Negative POCT U COLOR (test yellow code = 3266) POCT U APPEAR (test cloudy code = 3267) ANTONIETA (test code = ANTONIETA) accurate development and interpretation of all internal controls Lab Interpretation Normal (test code = 55547-9) NPI:[id number] URINALYSIS W SPECIFIC [id number] 18:29:00 Test Item Value Reference Range Interpretation Comments POCT U SP GRAV (test code = 1.025 mg/dl 1.005-1.025 3255) POCT PH U (test code = 3254) 5 mg/dl 5-8 POCT U LEUK EST (test code = + Negative - Negative 3263) POCT U NIT (test code = 3262) neg Negative - Negative POCT U PROT (test code = neg Negative - Negative 3259) POCT U GLU (test code = 3256) normal Negative - Negative POCT U KETONE (test code = + small Negative - Negative 3258) POCT U UROBILI (test code = 1 mg/dl 0.2-1 3260) POCT U BILI (test code = + Negative - Negative 3261) POCT U BLD (test code = 3257) neg Negative - Negative POCT U COLOR (test code = Shaina 3266) POCT U APPEAR (test code = cloudy 3267) Lab Interpretation (test code Normal = 07626-8)
--- NOTE | 2021-08-13 20:36 | ER ---
Nurse's Notes [facility] Name: Kathryn Castano Age: 21 yrs Sex: Female : 2000 Arrival Date: 08/13/2021 Time: 19:13 Bed Waiting Private MD: Diagnosis: Presentation: 08/13 19:19 Chief complaint: Patient states: Pt reports having intercourse last night. C/O severe ld1 lower abdominal pain, and vaginal pain. Pt states, "I feel like there is hard pressure or something inside of my vagina, it has never felt like this before.". Coronavirus screen: At this time, the client does not indicate any symptoms associated with coronavirus-19. Ebola Screen: No symptoms or risks identified at this time. Initial Sepsis Screen: Does the patient meet any 2 criteria? No. Patient's initial sepsis screen is negative. Does the patient have a suspected source of infection? No. Patient's initial sepsis screen is negative. Risk Assessment: Do you want to hurt yourself or someone else? Patient reports no desire to harm self or others. Onset of symptoms was August 13, 2021. 19:19 Method Of Arrival: Ambulatory ld1 19:19 Acuity: RADHA 4 ld1 Triage Assessment: 19:21 General: Appears in no apparent distress. comfortable, Behavior is calm, cooperative, ld1 appropriate for age. Pain: Complains of pain in right lower quadrant, left lower quadrant and pelvis Pain does not radiate. Pain currently is 8 out of 10 on a pain scale. Quality of pain is described as crampy, throbbing. EENT: No signs and/or symptoms were reported regarding the EENT system. Neuro: Level of Consciousness is awake, alert, obeys commands, Oriented to person, place, time, situation. Respiratory: Airway is patent Respiratory effort is even, unlabored. GI: Abdomen is round non-distended, Reports lower abdominal pain. : Reports pain in vagina. 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 - Social history:: Smoking status: Reported history of juuling and/or vaping. Patient uses alcohol, occasionally. Vital Signs: 19:19 BP 129 / 72; Pulse 98; Resp 18; Temp 98.7(TE); Pulse Ox 98% on R/A; Weight 95.25 kg; ld1 Height 5 ft. 0 in. (152.40 cm); Pain 8/10; 19:19 Body Mass Index 41.01 (95.25 kg, 152.40 cm) ld1 ED Course: 19:13 Patient arrived in ED. ds1 19:21 Triage completed. ld1 19:21 Arm band placed on right wrist. ld1 Administered Medications: No medications were administered Outcome: 20:35 Patient left the ED. ld1 Signatures: Marcia Arciniega ds1 Milagros Felipe, RN RN ld1
[2021-08-13 21:11] VITALS: BP 129/72; TEMP 98.7; O2SAT 98
== END 2021-08-13 20:35 | disposition left against medical advice (07) ==
LOC: ER 19:11
DX: Z53.21 Procedure and treatment not carried out due to patient leaving prior to being seen by health care provider (principal)
CPT/HCPCS: 99281